=== PATIENT | male | born 2000 | race Caucasian/White ===

== ENCOUNTER 2021-05-23 22:00 | Emergency (ER) | payer OTHER, MEDICAID, SELFPAY ==
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
[2021-05-23 22:04] VITALS: BP 138/81; PULSE 87; RESP 16; TEMP 37.1; O2SAT 100
[2021-05-23 22:16] VITALS: BP 120/75; PULSE 75; RESP 18; TEMP 37.4; O2SAT 100
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
[2021-05-24 00:30] VITALS: BP 134/82; PULSE 89; RESP 18; O2SAT 100
== END 2021-05-24 00:30 | disposition home or self-care (01) ==
PROVIDERS: Emergency Provider Emergency Medicine; PCP Family Medicine
DX: S62.323A Displaced fracture of shaft of third metacarpal bone, left hand, initial encounter for closed fracture (principal); V49.50XA Passenger injured in collision with unspecified motor vehicles in traffic accident, initial encounter
CPT/HCPCS: 29125; 73130; 99284

== ENCOUNTER 2022-12-28 07:32 | Emergency (ER) | payer OTHER, SELFPAY ==
--- NOTE | ~2022-12-28 | CT_ITS ---
EXAMINATION: CT abdomen pelvis w con DATE: 12/28/2022 09:26 INDICATION: Right abdominal pain. Nausea. TECHNIQUE: Computed tomography (CT) of the abdomen and pelvis was performed with 100 mL Omnipaque 350 intravenous contrast. Automated exposure control and iterative reconstruction technique were employe d. The dose-length product was 245.06 mGy-cm. COMPARISON: None. FINDINGS: The visualized portions of the lung bases are clear without pneumonia or pleural effusion. The heart size is normal. No pericardial effusion. The liver, gallbladder, spleen, pancreas, adrenal glands, and kidneys are normal. There are no dilated loops of bowel. The appendix is not visualized. There are no pathologically enlarged lymph nodes. There is trace pelvic ascites. IMPRESSION: 1. Trace pelvic ascites. Reviewed, dictated and finalized at location A. IMPRESSION: 1. Trace pelvic ascites.
[2022-12-28 07:43] VITALS: BP 123/85; PULSE 71; RESP 18; TEMP 37.1; O2SAT 98
[2022-12-28] MEDS: SODIUM CHLORIDE 0.9% IV 1,000 ML 999 ML IV CONT (08:31)
[2022-12-28] MEDS: ONDANSETRON INJ 4 MG/2 ML VIAL IV PUSH (08:31)
[2022-12-28] MEDS: KETOROLAC 30 MG/ML VIAL (*BKC) IV PUSH (08:31)
[2022-12-28 08:33] LABS: Appearance Urine Clear (Clear); Bilirubin Urine Negative (Negative); Blood Urine Negative (Negative); Color Urine Yellow (Yellow); Glucose Urine UA Negative (Negative); Ketones Urine Negative (Negative); Leukocyte Esterase Ur Negative LEU/UL (Negative); Nitrate Urine Negative (Negative); Protein Urine Negative (Negative); Specific Grav Ur 1.023 (1.001-1.035); Urobilinogen Urine 0.2 mg/dL (<2.0)
[2022-12-28 08:37] LABS: Add Urine Microscopic? NO; Basophils Absolute Auto 0.1 K/mm3 (0.0-0.1); Basophils Percent Auto 0.5 % (0.2-1.2); Eosinophils Absolute Auto 0.1 K/mm3 (0-0.3); Hematocrit 42.6 % (42.0-52.0); Hemoglobin 15.2 g/dL (14.0-18.0); Immature Granulocyte Absolute 0.03 K/mm3 (0.00-0.031); Immature Granulocyte Percent A 0.2 % (0-0.5); Lymphocytes Absolute Auto 3.48 K/mm3 (0.9-3.2); Lymphocytes Percent Auto 28.7 % (18.3-44.2); Mean Corpuscular HGB Conc 35.7 g/dl (32-36); Mean Corpuscular Hemoglobin 30.5 pg (26-34); Mean Corpuscular Volume 85.4 fl (80-100); Mean Platelet Volume 9.5 fl (7.4-10.4); Monocytes Percent Auto 8.2 % (2.6-8.5); Neutrophils Absolute Auto 7.4 K/mm3 (1.3-6.7); Neutrophils Percent Auto 61.4 % (45.5-73.1); Platelet Count Result 219 k/mm3 (150-375); Red Blood Count 4.99 M/mm3 (4.6-6.20); Red Cell Distribution Width 12.5 % (11.5-14.5); White Blood Count 12.1 K/mm3 (4.5-10.0)
[2022-12-28 08:43] LABS: Alanine Aminotransferase 59 U/L (6-50); Albumin Level 4.9 g/dL (3.5-5.1); Alkaline Phosphatase 94 U/L (38-126); Anion Gap 5 mmol/L (8-16); Aspartate Amino Transferase 168 U/L (17-59); Bilirubin,Total 0.8 mg/dL (0.2-1.3); Blood Urea Nitrogen 15 mg/dL (9-20); Calcium 9.3 mg/dL (8.4-10.2); Carbon Dioxide 34 mmol/L (22-30); Chloride 101 mmol/L (98-107); Estimated CRCL calculation 99 ml/min; Estimated Glomerular Filt Rate > 60; Glucose 94 mg/dL (65-110); Lipase 45 U/L (23-300); Sodium 140 mmol/L (137-145)
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
[2022-12-28 10:28] VITALS: BP 120/75; PULSE 74; RESP 16; O2SAT 99
== END 2022-12-28 10:29 | disposition home or self-care (01) ==
PROVIDERS: Emergency Provider Emergency Medicine; PCP Family Medicine
DX: R10.31 Right lower quadrant pain (principal)
CPT/HCPCS: 36415; 74177; 80053; 81003; 83690; 85025; 96361; 96374; 96375; 99284; J1885; J2405; J7030; Q9967

== ENCOUNTER 2023-01-20 23:16 | Emergency (ER) | payer OTHER, SELFPAY ==
[2023-01-20 23:20] VITALS: BP 113/70; PULSE 75; RESP 20; TEMP 36.7; O2SAT 98
== END 2023-01-21 01:00 | disposition left against medical advice (07) ==
PROVIDERS: PCP Family Medicine
DX: R22.0 Localized swelling, mass and lump, head (principal)
CPT/HCPCS: 99199

== ENCOUNTER 2023-11-01 18:10 | Emergency (ER) | payer OTHER, SELFPAY ==
[2023-11-01 18:28] VITALS: BP 115/76; PULSE 104; RESP 16; TEMP 38.8; O2SAT 100
--- NOTE | 2023-11-01 19:25 | ED.GENADULT ---
HPI - General Adult General Chief complaint: Upper Respiratory Infection Stated complaint: Sinus/Sore Throat Source: patient Mode of arrival: ambulatory Limitations: no limitations History of Present Illness HPI narrative: Patient presents for evaluation of sick symptoms for last 2 days. Symptoms include cough, sore throat, generalized body aches and fever. No chills, nausea, vomiting, diarrhea. 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 He does not know specifics as to what that individual was experiencing. He does vape. He has tried OTC cough and cold medications without considerable improvement in his symptoms thereafter. Related Data Home Medications Medication Instructions Recorded Confirmed escitalopram oxalate 10 mg tablet 10 mg PO DAILY 11/01/23 11/01/23 hydroxyzine HCl 25 mg tablet 25 mg PO DIRECTED 11/01/23 11/01/23 Allergies Allergy/AdvReac Type Severity Reaction Status Date / Time No Known Allergies Allergy Mild Verified 11/01/23 18:25 Review of Systems Review of Systems: CONSTITUTIONAL: Reports fever. Denies chills. EYES: Denies visual changes, redness, or discharge. ENT: Reports sore throat. Denies rhinorrhea, congestion, or otalgia. CARDIOVASCULAR: Denies chest pain, palpitations, or edema. RESPIRATORY: Reports cough. Denies shortness of. GASTROINTESTINAL: Denies abdominal pain, nausea, vomiting, or diarrhea. GENITOURINARY: Denies dysuria or hematuria. SKIN: Denies rash or itching. MUSCULOSKELETAL: Reports generalized body aches. NEUROLOGIC: Denies headache, numbness, dizziness, or weakness. PSYCHIATRIC: Denies anxiety or depression. [facility] Past Medical History Medical History (Updated 11/01/23 @ 19:29 by AGAPITO Ernandez, ) Patient denies significant medical history Surgical History Surgical History (Updated 11/01/23 @ 19:29 by AGAPITO Ernandez, JACKIE) No pertinent past surgical history Family History Family History (Updated 11/01/23 @ 19:32 by AGAPITO Ernandez, JACKIE) Mother No problems noted. Social History Social History Smoking status: Current every day smoker Tobacco type: e-cigarettes/vaping Alcohol intake: never Substance use: current Substance use type: marijuana Living arrangements: with family Occupation/Education: student Gender identity (if verbalized by the patient): Male Spiritual care concerns: No Exam Narrative: GENERAL: Well-appearing, well-nourished, and in no acute distress. HEAD: Normocephalic, atraumatic. EYES: PERRLA and EOMI. ENT: Nares clear, no rhinorrhea or epistaxis. Mucous membranes moist. Oropharynx without tonsillar hypertrophy exudate or other lesions. Bilateral TMs pearly maldonado nonbulging NECK: Supple. No adenopathy or masses. No carotid bruits or JVD CHEST: Clear to auscultation. No respiratory distress. No wheezes rales or rhonchi HEART: Regular rate and rhythm. No murmur heard. Normal peripheral pulses. ABDOMEN: Soft, nontender, nondistended, normal active bowel sounds. EXTREMITIES: Normal range of motion. No edema. SKIN: Warm, dry, no rash. NEURO: No focal deficits. Alert and oriented x3. PSYCH: Normal mood and affect. Course Course Emergency Course: This is a 22-year-old male who presented for evaluation of sick symptoms for last 2 days. Strep, influenza a, and COVID were all negative. Influenza B was positive. Will treat with Tamiflu. Increase hydration. OTC agents for symptom management. Follow up with primary provider. Go to the ER for worsening symptoms. Pt in agreement with plan of care. Level of Care: Express Care Visit Vital Signs Vital signs: Vital Signs Temperature 38.8 C H 11/01/23 18:28 Pulse Rate 104 H 11/01/23 18:28 Respiratory Rate 16 11/01/23 18:28 Blood Pressure 115/76 11/01/23 18:28 Pulse Oximetry 100 11/01/23 18:28 Oxygen Delivery Room Air 11/01/23 18:
== END 2023-11-01 19:30 | disposition home or self-care (01) ==
LOC: EXPCOLL 18:13
PROVIDERS: Emergency Provider Nurse Practitioner; PCP Family Medicine
DX: J10.1 Influenza due to other identified influenza virus with other respiratory manifestations (principal); Z20.822 Contact with and (suspected) exposure to COVID-19; F17.290 Nicotine dependence, other tobacco product, uncomplicated; F12.90 Cannabis use, unspecified, uncomplicated
CPT/HCPCS: 87081; 87426; 87804; 87880; 99213; G0463

== ENCOUNTER 2023-11-05 10:32 | Emergency (ER) | payer OTHER, SELFPAY ==
--- NOTE | 2023-11-05 10:33 | ED.URI ---
HPI - URI/Sore Throat General Chief Complaint: Upper Respiratory Infection Stated Complaint: Sinus Time Seen by Provider: 11/05/23 10:33 Source: patient Mode of arrival: ambulatory Limitations: no limitations History of Present Illness HPI Narrative: Patient is a 22-year-old male that presents with continued symptoms of influenza B including cough, congestion, sore throat, body aches and fatigue. Patient was diagnosed 2. Patient states work is requiring another note. Denies any fever, chills, nausea, vomiting, diarrhea. Related Data Home Medications Medication Instructions Recorded Confirmed escitalopram oxalate 10 mg tablet 10 mg PO DAILY 11/01/23 11/05/23 hydroxyzine HCl 25 mg tablet 25 mg PO DIRECTED 11/01/23 11/05/23 Allergies Allergy/AdvReac Type Severity Reaction Status Date / Time No Known Allergies Allergy Mild Verified 11/05/23 10:34 Review of Systems Review of Systems: All systems reviewed & are unremarkable except as noted in HPI and below Constitutional: Constitutional: Reports body ache(s), Denies chills, Reports fatigue, Denies fever(s), Denies headache(s), Denies malaise and Denies weakness Eyes: Eyes: Denies blurry vision, Denies itchy eyes and Denies loss of vision ENT: Denies otalgia, Denies headache(s), Reports nasal congestion, Denies sinus pain and Reports sore throat Cardiovascular: Cardiovascular: Denies chest pain, Denies irregular heart rhythm and Denies dyspnea Respiratory: Respiratory: Reports cough and Denies dyspnea Gastrointestinal: Gastrointestinal: Denies abdominal pain, Denies diarrhea, Denies nausea and Denies vomiting Musculoskeletal: Musculoskeletal: Denies back pain, Denies myalgias and Denies arthralgias Integumentary/Breasts: Skin/Breast: Denies pruritus and Denies rash Neurologic: Denies headache(s), Denies loss of vision and Denies weakness Psychiatric: Psychiatric: Reports no additional psychiatric complaints Endocrine: Endocrine: Denies fatigue Allergic/Immunologic: Allergic/Immunologic: Denies itchy eyes PMFSH Past Medical History Medical History Patient denies significant medical history Surgical History Surgical History No pertinent past surgical history Family History Family History Mother No problems noted. Social History Social History Smoking status: Current every day smoker Tobacco type: e-cigarettes/vaping Alcohol intake: never Substance use: current Substance use type: marijuana Living arrangements: with family Occupation/Education: student Gender identity (if verbalized by the patient): Male Spiritual care concerns: No Comments At time of signature, agree with nursing past medical, surgical, social and family history. There is no relevant family history pertinent to the presenting complaint. Exam Const: General: cooperative, healthy appearing, comfortable, no acute distress and well nourished Nutritional Appearance: well nourished Orientation/consciousness: patient oriented x3 Limitations: no limitations HENMT: Head: normal to inspection, normocephalic and atraumatic Ears: hearing grossly normal bilaterally, external ears normal, TM's normal bilaterally, EAC's normal and no periauricular adenopathy Face/Nose/Sinus: Normal external nose present, Abnormal mucous membranes and turbinates present erythematous bilateral and diffuse, normal facial exam, sinuses nontender and face symmetric Face and sinus: normal facial exam, sinuses nontender and face symmetric Mouth: Yes Normal oral and palatal mucosa present, Yes lip normal, Yes tongue normal, Yes Normal salivary glands and ducts present, Yes oropharynx normal and Yes moist mucous membranes Teeth and gingiva: dentition normal Throat: posterio
[2023-11-05 10:39] VITALS: BP 117/65; PULSE 74; RESP 16; TEMP 37; O2SAT 100
== END 2023-11-05 10:55 | disposition home or self-care (01) ==
PROVIDERS: Emergency Provider Nurse Practitioner Family; PCP Family Medicine
DX: J10.1 Influenza due to other identified influenza virus with other respiratory manifestations (principal); F17.290 Nicotine dependence, other tobacco product, uncomplicated; Z79.899 Other long term (current) drug therapy
CPT/HCPCS: 99211; G0463

== ENCOUNTER 2025-04-04 20:05 | Emergency (ER) | payer SELFPAY ==
--- NOTE | ~2025-04-04 | XR_ITS ---
XR chest 2V Ordering provider: Brittany Shannon MD History: 24 years Male with . chest pain on left side, swelling . Comparison: None. FINDINGS: MEDIASTINUM: The cardiac silhouette is not enlarged. LUNGS: No infiltrates, effusions or pneumothorax. OTHER: No free air under the diaphragm. IMPRESSION: No acute cardiopulmonary pathology. Reviewed, dictated and finalized at location A.
--- OUTSIDE RECORDS SUMMARY | 2025-04-04 20:07 | XMS_ITS | Clinical Summary ---
Author Organization [facility] Address [address] [place] [address] Care Team Providers Care Soda Fountain Manager Name Role Phone No, Physician Primary Care Provider [phone] Allergies No known active allergies Medications No known medications Encounters Date Type Department Care Team Description 01/17/2025 11:11 AM CDT - 01/17/2025 2:02 PM CDT Emergency [facility] Emergency Department 1 [place] [address] Electric shock, initial encounter (Primary Dx) Discharge Disposition: Discharge to home or self care from Last 3 Months Social History Tobacco Use Types Packs/Day Years Used Date Smoking Tobacco: Never Assessed Personal Safety Answer Date Recorded Have you ever been in or are you currently in a harmful physical or emotional relationship or is someone making you feel afraid or unsafe? Denies 01/17/2025 Sex and Gender Information Value Date Recorded Sex Assigned at Not on file Legal Sex Male 11:05 AM CDT Gender Identity Not on file Sexual Orientation Not on file Obstetrics History Last Filed Vital Signs Vital Sign Reading Time Taken Comments Blood Pressure 120/74 01/17/2025 2:02 PM CDT Pulse 80 01/17/2025 2:02 PM CDT Temperature 37.7 C (99.8 F) 01/17/2025 11:08 AM CDT Respiratory Rate 18 01/17/2025 2:02 PM CDT Oxygen Saturation 98% 01/17/2025 2:02 PM CDT Inhaled Oxygen Concentration - - Weight 70.3 kg (155 lb) 01/17/2025 11:08 AM CDT Height 182.9 cm (6') 01/17/2025 11:08 AM CDT Body Mass Index 21.02 01/17/2025 11:08 AM CDT Plan of Treatment Health Maintenance Due Date Last Done Comments Depression Screening 2001 Hepatitis C Screening 2001 Varicella Vaccines (1 of 2 - 13+ 2-dose series) 2014 Meningococcal B Vaccine (1 of 2 - Standard) 2017 Hepatitis B Screening 12/27/2019 Regular Well Visit/Exam 18-64 12/27/2019 DTaP/Tdap/Td Vaccine (2 - Td or Tdap) 06/29/2023 06/29/2013 Influenza Vaccine (Season Ended) 2025 08/13/2016, 08/18/2013 HPV Vaccines Completed 05/07/2016, 09/29, 05/10/2015, Additional history exists Pneumococcal vaccine <65 Aged Out No longer eligible based on patient's age to complete this topic Procedures Procedure Name Priority Date/Time Associated Diagnosis Comments URINALYSIS AND REFLEX TO MICROSCOPIC AND CULTURE STAT 01/17/2025 12:59 PM CDT EGFR STAT 01/17/2025 11:41 AM CDT DIFFERENTIAL AUTO STAT 01/17/2025 11: 41 AM CDT SEPSIS LACTATE WITH REFLEX STAT 01/17/2025 11:41 AM CDT CREATINE KINASE (CK), TOTAL STAT 01/17/2025 11:41 AM CDT COMPREHENSIVE METABOLIC PANEL STAT 01/17/2025 11:41 AM CDT CBC WITH AUTO DIFFERENTIAL STAT 01/17/2025 11:41 AM CDT ECG 12-LEAD Routine 01/17/2025 11:32 AM CDT from Last 3 Months Results * Urinalysis reflex to microscopic and culture Urine (01/17/2025 12:59 PM CDT) Color, ur Yellow Yellow Clarity, ur Clear Clear [facility] ([place]) Specific gravity, ur 1.024 1.003 - 1.030 [facility] ([place]) pH, urine 7.5 [facility] ([place]) Comment: Interpretive Data U rine pH is affected by diet, medications, systemic acid-base disturbances, and renal tubular function. pH may affect urinary stone formation. For example, urine pH below 6.0 may help reduce the tendency for calcium phosphate stones and pH greater than 6.0 may reduce the tendency for uric acid stone formation. Source: [facility] Current Interpretive Data was last revised on 2017 Protein, ur ql Negative Negative [facility] ([place]) Glucose, ur ql Negative Negative [facility] ([place]) Ketones, ur Negative Negative [facility] ([place]) Bilirubin, ur Negative Negative [facility] ([place]) Blood, ur Negative Negative [facility] ([place]) Urobilinogen, ur <2.0 <2.0 mg/dL [facility] ([place]) Nitrite, ur Negative Negative [facility] ([place]) Leukocyte esterase, ur Negative Negative [facility] ([place]) UA reflex comment Reflex conditions for microscopic UA and culture not met. [facility] ([place]) Urine 01/17/2025 12:5 9 PM CDT 01/17/2025 1:05 PM CDT us Luis Hernandez NP LAB MICROBIOLOGY - GENERAL ORDERABLES Final Result Performing Organization Address City/[facility]/ZIP Co de Phone Number AYAKA STEVENSON ([place]) 1 [facility] [place] [address] * Sepsis Lactate w/ Reflex (01/17/2025 11:41 AM CDT) Sepsis Lactate 1.3 0.7 - 2.0 mmol/L Blood 01/17/2025 11:4 1 AM CDT 01/17/2025 11:51 AM CDT us Luis Hernandez NP LAB BLOOD ORDERABLES Final Result Performing Organization Address [facility]/ZIP Co de Phone Number AYAKA STEVENSON ([place]) 1 [facility] [place] [address] * eGFR (01/17/2025 11:41 AM CDT) eGFR >90 >=60 mL/min/1. 73 m2 Comment: Interpretive Data Reference Interval Normal >/= 90 mL/min/1.73m2 Mildly decreased* 60 - 89 mL/min/1.73m2 Mildly to moderately decreased 45 - 59 mL/min/1.73m2 Moderately to severely decreased 30 - 44 mL/min/1.73m2 Severely decreased 15 - 29 mL/min/1.73m2 Kidney Failure < 15 mL/min/1.73m2 *Relative to young adult level Estimated glomerular filtration rate is determined by the 2020 CKD-EPI equation recommended by the National Kidney Foundation (A Unifying Approach to GFR Estimation: Recommendations of the NKF-ASK Task Force on Reassessing the Inclusion of Race in Diagnosing Kidney Disease, JASN 2020). The CKD-EPI equation should not be used for patients with unstable renal function and has not been validated in children and those over 70. Current interpretive data was last reviewed 2021. Blood 01/17/2025 11:4 1 AM CDT 01/17/2025 11:51 AM CDT us uLis Hernandez NP LAB BLOOD ORDERABLES Final Result AYAKA STEVENSON ([place]) 1 [facility] Department [place] [address] * Differential, auto (01/17/2025 11:41 AM CDT) Neutrophil abs 3.82 1.50 - 6.50 K/cumm Imm gran abs 0.01 0.00 - 0.10 K/cumm [facility] ([place]) Lymphocyte abs 1.70 0.80 - 3.30 K/cumm [facility] ([place]) Monocyte abs 0.52 0.20 - 0.80 K/cumm [facility] ([place]) Eosinophil abs 0.05 0.00 - 0.50 K/cumm [facility] ([place]) Basophil abs 0.07 0.00 - 0.10 K/cumm [facility] ([place]) Neutrophil pct 61.9 % [facility] ([place]) Comment: Interpretive Data Percent cell count reference ranges are not reported, since discordance with absolute values may lead to misinterpretation of CBC data. Current Interpretive Data was last revised on 2018. Imm gran pct 0.2 % AYAKA STEVENSON ([place]) Comment: Interpretive Data Percent cell count reference ranges are not reported, since discordance with absolute values may lead to misinterpretation of CBC data. Current Interpretive Data was last revised on 2018. Lymphocyte pct 27.6 % BRIANNE R GRAHAM (A[place]ON) Comment: Interpretive Data Percent cell count reference ranges are not reported, since discordance with absolute values may lead to misinterpretation of CBC data. Current Interpretive Data was last revised on 2018. Monocyte pct 8.4 % AYAKA STEVENSON ([place]) Comment: Interpretive Data Percent cell count reference ranges are not reported, since discordance with absolute values may lead to misinterpretation of CBC data. Current Interpretive Data was last revised on 2018. Eosinophil pct 0.8 % [facility] R [facility] ([place]ON) Comment: Interpretive Data Percent cell count reference ranges are not reported, since discordance with absolute values may lead to misinterpretation of CBC data. Current Interpretive Data was last revised on 2018. Basophil pct 1.1 % AYAKA STEVENSON ([place]) Comment: Interpretive Data Percent cell count reference ranges are not reported, since discordance with absolute values may lead to misinterpretation of CBC data. Current Interpretive Data was last revised on 2018. Blood 01/17/2025 11:4 1 AM CDT 01/17/2025 11:51 AM CDT us Luis Hernandez ACETYLENE OPERATOR LAB BLOOD ORDERABLES Final Result AYAKA STEVENSON ([place]) 1 [facility] Department of Laboratories [place], [place] [id number] * CBC with auto differential (01/17/2025 11:41 AM CDT) WBC 6.17 3.80 - 9.90 K/cumm Hgb 14.0 13.0 - 17.5 g/dL [facility] ([place]) Hct 39.6 38.9 - 50.3 % [facility] ([place]) Plt 196 150 - 400 K/cumm [facility] ([place]) MPV 9.5 9.1 - 12.3 fL [facility] ([place]) RBC 4.58 4.30 - 5.80 M/cumm [facility] ([place]) MCV 86.5 81.3 - 96.4 fL [facility] ([place]) MCH 30.6 27.1 - 33.3 pg [facility] ([place]) MCHC 35.4 32.3 - 35.7 g/dL [facility] ([place]) RDW CV 12.5 11.1 - 14.9 % [facility] ([place]) RDW SD 39.3 35.7 - 48.1 fL [facility] NRBC abs 0.00 0.00 - 0.01 K/cumm [facility] ([place]) Blood 01/17/2025 11:4 1 AM CDT 01/17/2025 11:51 AM CDT us Luis Hernandez ACETYLENE OPERATOR LAB BLOOD ORDERABLES Final Result AYAKA STEVENSON ([place]) 1 [facility] [place] [address] * Creatine kinase (CK), total (01/17/2025 11:41 AM CDT) CK 182 40 - 300 Units/L Blood 01/17/2025 11:4 1 AM CDT 01/17/2025 11:51 AM CDT Luis Hernandez NP LAB BLOOD ORDERABLES Final Result AYAKA STEVENSON ([place]) 1 [facility] [address] * Comprehensive metabolic panel (01/17/2025 11:41 AM CDT) Sodium 139 135 - 145 mmol/L Potassium, pl 4.0 3.3 - 4.9 mmol/L [facility] ([place]) Chloride 102 97 - 110 mmol/L [facility] ([place]) CO2 25 22 - 32 mmol/L [facility] ([place]) Anion gap 12 2 - 15 mmol/L [facility] ([place]) BUN 15 6 - 25 mg/dL [facility] ([place]) Creatinine 0.96 0.80 - 1.30 mg/dL [facility] ([place]) Glucose 90 70 - 199 mg/dL [facility] ([place]) Comment: Interpretive Data Fasting glucose >/= 126 mg/dl is diagnostic for diabetes. Fasting is defined as no caloric intake for at least 8 hours. Fasting glucose between 100 mg/dl to 125 mg/dl is diagnostic of prediabetes. In a patient with classic symptoms of hyperglycemia or hyperglycemic crisis, a random glucose >/= 200 mg/dl is diagnostic for diabetes. In the absence of unequivocal hyperglycemia, results should be confirmed by repeat testing. The classification and Diagnosis of Diabetes Diabetes Care 2021; 46: S19-S40. Current interpretive data was last revised 2022. Calcium 9.6 8.5 - 10.3 mg/dL [facility] ([place]) Bilirubin, total 0.3 0.1 - 1.2 mg/dL [facility] ([place]) Protein, pl 7.4 6.5 - 8.5 g/dL [facility] ([place]) Albumin 4.8 3.5 - 5.0 g/dL [facility] ([place]) Alk phos 59 40 - 130 Units/L [facility] ([place]) ALT 11 7 - 55 Units/L [facility] ([place]) AST 21 10 - 50 Units/L [facility] ([place]) Blood 01/17/2025 11:4 1 AM CDT 01/17/2025 11:51 AM CDT us Luis Hernandez NP LAB BLOOD ORDERABLES Final Result [facility] ([place]ON) 1 [facility] Department [place] [address] * ECG 12 lead (01/17/2025 11:32 AM CDT) 01/17/2025 11:3 2 AM CDT Narrative [facility] - 01/17/2025 12:24 PM CDT [place] Rate: 91 bpm RR Interval: 655 msec [place] Interval: 148 msec QRS Duration: 104 msec QT Interval: 327 msec QTC Interval: 376 msec P-R-T [place]: 76 - 81 - 53 degrees IMPRESSION: SINUS RHYTHM POSSIBLE RIGHT VENTRICULAR CONDUCTION DELAY [RSR (QR) IN V1/V2] BORDERLINE ECG Electronically Signed By: Agustin Mart MD us Luis Hernandez ACETYLENE OPERATOR ECG ORDERABLES Final Resul t [facility] from Last 3 Months Care Teams Soda Fountain Manager Relationship Specialty Start Date End Date No, Physician PCP - General 01/17/25
--- OUTSIDE RECORDS SUMMARY | 2025-04-04 20:07 | XMS_ITS | Referral Summary ---
Author Organization [facility] Address [address] [place] [address] Care Team Providers Care Sheet Metal Worker Helper Name Role Phone No, Physician Primary Care Provider [phone] Encounters Date Type Department Care Team Description 01/17/2025 11:11 AM CDT - 01/17/2025 2:02 PM CDT Emergency [facility] Emergency Department [address] [place] [address] Electric shock, initial encounter (Primary Dx) Discharge Disposition: Discharge to home or self care from Last 3 Months Allergies No known active allergies Medications No known medications Social History Tobacco Use Types Packs/Day Years [...] on file Sexual Orientation Not on file Last Filed Vital Signs Vital Sign Reading [...] 01/17/2025 11:08 AM CDT Plan of Treatment Not on file Procedures Procedure Name Priority Date/Time Associated Diagnosis [...] tendency for uric acid stone formation. Source: [facility] Current Interpretive Data was last revised on 2017 Protein, ur ql Negative Negative [facility] ([place]) Glucose, ur ql Negative Negative [facility] ([place]) Ketones, ur Negative Negative [facility] ([place]) Bilirubin, ur Negative Negative [facility] ([place]) Blood, ur Negative Negative [facility] ([place]) Urobilinogen, ur <2.0 <2.0 mg/dL [facility] ([place]ON) Nitrite, ur Negative Negative CERNER A (AARON) Leukocyte esterase, ur Negative Negative [facility] ([facility] UA reflex comment Reflex conditions for microscopic UA and culture not met. [facility] ([place]ON) Urine 01/17/2025 12:5 9 PM CDT 01/17/2025 1:05 PM CDT Luis Hernandez NP LAB MICROBIOLOGY - GENERAL ORDERABLES Final Result [facility]A [facility] ([place]) 1 [facility] [place] [address] * Sepsis Lactate w/ Reflex (01/17/2025 11:41 AM CDT) Sepsis Lactate 1.3 0.7 - 2.0 mmol/L Blood 01/17/2025 11:4 1 AM CDT 01/17/2025 11:51 AM CDT Luis Hernandez NP LAB BLOOD ORDERABLES Final Result AYAKA STEVENSON ([place]) 1 [facility] [place] [address] * eGFR (01/17/2025 11:41 AM CDT) eGFR [...] 01/17/2025 11:51 AM CDT us Luis Hernandez CREDIT UNION TELLER LAB BLOOD ORDERABLES Final Result [facility] ([place]) 1 [facility] Department [place] [address] * Differential, auto (01/17/2025 11:41 AM CDT) [...] on 2018. Imm gran pct 0.2 % [facility] ([place]) Comment: Interpretive Data Percent cell count reference ranges are not reported, since discordance with absolute values may lead to misinterpretation of CBC data. Current Interpretive Data was last revised on 2018. Lymphocyte pct 27.6 % [facility] ([place]) Comment: Interpretive Data Percent cell count reference ranges are not reported, since discordance with absolute values may lead to misinterpretation of CBC data. Current Interpretive Data was last revised on 2018. Monocyte pct 8.4 % [facility] ([place]) Comment: Interpretive Data Percent cell count reference ranges are not reported, since discordance with absolute values may lead to misinterpretation of CBC data. Current Interpretive Data was last revised on 2018. Eosinophil pct 0.8 % [facility] ([place]) Comment: Interpretive Data Percent cell count reference ranges are not reported, since discordance with absolute values may lead to misinterpretation of CBC data. Current Interpretive Data was last revised on 2018. Basophil pct 1.1 % [facility] ([place]) Comment: Interpretive Data Percent cell count reference ranges are not reported, since discordance with absolute values may lead to misinterpretation of CBC data. Current Interpretive Data was last revised on 2018. Blood 01/17/2025 11:4 1 AM CDT 01/17/2025 11:51 AM CDT Luis Hernandez CREDIT UNION TELLER LAB BLOOD ORDERABLES Final Result [facility] ([place]) 1 [facility] Department [place] [address] * CBC with auto differential (01/17/2025 11:41 AM CDT) WBC 6.17 3.80 - 9.90 K/cumm Hgb 14.0 13.0 - 17.5 g/dL [facility] ([place]) Hct 39.6 38.9 - 50.3 % [facility] ([place]) Plt 196 150 - 400 K/cumm [facility] ([place]) MPV 9.5 9.1 - 12.3 fL [facility] ([place]) RBC 4.58 4.30 - 5.80 M/cumm [facility] ([place]) MCV 86.5 81.3 - 96.4 fL [facility] ([place]) MCH 30.6 27.1 - 33.3 pg [facility] ([place]) MCHC 35.4 32.3 - 35.7 g/dL [facility] ([place]) RDW CV 12.5 11.1 - 14.9 % [facility] ([place]) RDW SD 39.3 35.7 - 48.1 fL [facility] ([place]) NRBC abs 0.00 0.00 - 0.01 K/cumm [facility] ([place]) Blood 01/17/2025 11:4 1 AM CDT 01/17/2025 11:51 AM CDT Luis Hernandez NP LAB BLOOD ORDERABLES Final Result Performing Organization Address City/[facility]/ZIP Co de Phone Number AYAKA STEVENSON ([place]) 1 [facility] [place] [address] * Creatine kinase (CK), total (01/17/2025 11:41 AM CDT) CK 182 40 - 300 Units/L Blood 01/17/2025 11:4 1 AM CDT 01/17/2025 11:51 AM CDT Luis Hernandez CREDIT UNION TELLER LAB BLOOD ORDERABLES Final Result Performing Organization Address [facility] de Phone Number [facility] ([place]) 1 [facility] [place] [address] * Comprehensive metabolic panel (01/17/2025 11:41 AM CDT) Sodium 139 135 - 145 mmol/L Potassium, pl 4.0 3.3 - 4.9 mmol/L [facility] ([place]) Chloride 102 97 - 110 mmol/L [facility] ([place]) CO2 25 22 - 32 mmol/L [facility] ([place]) Anion gap 12 2 - 15 mmol/L [facility] ([place]) BUN 15 6 - 25 mg/dL [facility] ([place]) Creatinine 0.96 0.80 - 1.30 mg/dL [facility] ([place]) Glucose 90 70 - 199 mg/dL [facility] ([place]) Comment: Interpretive Data Fasting glucose [...] BLOOD ORDERABLES Final Result Performing Organization Address City/[facility] Co de Phone Number [facility]A [facility] ([place]) 1 [facility] [place] [address] * ECG 12 lead (01/17/2025 11:32 AM CDT) 01/17/2025 11:3 2 AM CDT Narrative [facility] [employer] - 01/17/2025 12:24 PM CDT Vent Rate: 91 bpm RR Interval: 655 msec [place] Interval: 148 msec QRS Duration: 104 msec QT Interval: 327 msec QTC Interval: 376 msec P-R-T [place]: 76 - 81 - 53 degrees IMPRESSION: SINUS RHYTHM POSSIBLE RIGHT VENTRICULAR CONDUCTION DELAY [RSR (QR) IN V1/V2] BORDERLINE ECG Electronically Signed By: Agustin Mart MD Luis Hernandez CREDIT UNION TELLER ECG ORDERABLES Final Resul t Performing Organization Address City/[facility]/ZIP Co de Phone Number [facility] [employer] [facility] from Last 3 Months Care Teams Sheet Metal Worker Helper Relationship Specialty Start Date End Date No, Physician PCP - General 01/17/25
[2025-04-04 20:09] VITALS: BP 121/69; PULSE 81; RESP 17; TEMP 36.5; O2SAT 97
--- NOTE | 2025-04-04 20:15 | ECG_ITS ---
Test Date: 2025-04-04 20:19:53 Measurements Intervals [place] Rate: 79 P: 78 NE: 148 QRS: 83 QRSD: 100 T: 56 QT: 352 QTc: 405 Interpretive Statements SINUS RHYTHM POSSIBLE LEFT ATRIAL ENLARGEMENT [-0.1mV P WAVE IN V1/V2] POSSIBLE RIGHT VENTRICULAR CONDUCTION DELAY [RSR (QR) IN V1/V2] WITHIN NORMAL LIMITS No previous ECG available for comparison Electronically Signed On 04-05-2025 07:47:08 CDT by Leobardo Calderon M.D.
[2025-04-04 20:37] LABS: Hematocrit 44.1 % (42.0-52.0); Hemoglobin 15.4 g/dL (14.0-18.0); Immature Granulocyte Percent A 0.3 % (0-0.5); Lymphocytes Absolute Auto 2.85 K/mm3 (0.9-3.2); Mean Corpuscular HGB Conc 34.9 g/dl (32-36); Mean Corpuscular Hemoglobin 30.2 pg (26-34); Mean Corpuscular Volume 86.5 fl (80-100); Nucleated Red Blood Cells Absolute Auto 0.000 K/mm3 (0.0-0.012); Nucleated Red Blood Cells Perc 0.0 % (0.0-0.2); Platelet Count Result 218 k/mm3 (150-375); Red Blood Count 5.10 M/mm3 (4.6-6.20); White Blood Count 10.4 K/mm3 (4.5-10.0)
[2025-04-04 20:46] LABS: Alanine Aminotransferase 17 U/L (6-50); Albumin Level 5.1 g/dL (3.5-5.1); Alkaline Phosphatase 48 U/L (38-126); Anion Gap 10 mmol/L (4-12); Aspartate Amino Transferase 34 U/L (17-59); Bilirubin,Total 0.5 mg/dL (0.2-1.3); Blood Urea Nitrogen 22 mg/dL (9-20); Calcium 10.1 mg/dL (8.4-10.2); Carbon Dioxide 30 mmol/L (22-30); Chloride 101 mmol/L (98-107); Estimated CRCL calculation 83 ml/min; Estimated Glomerular Filt Rate > 60; Glucose 96 mg/dL (65-110); Lipase 63 U/L (23-300); Sodium 141 mmol/L (137-145); Total Protein 8.2 g/dL (6.3-8.2)
[2025-04-04 20:49] LABS: INR 1.1; Partial Thromboplastin Time 26.3 Seconds (22.3-36.8); Prothrombin Time 13.9 Seconds (11.1-14.7)
[2025-04-04 20:57] LABS: Troponin I < 0.012 ng/mL (0.000-0.034)
--- NOTE | 2025-04-04 21:25 | PC.NURSE ---
PT WAS CALLED TO BE PLACED IN ROOM WITH NO ANSWER. NOT FOUND IN WAITING ROOM OR OUTSIDE OF DEPARTMENT.
[2025-04-04 22:09] LABS: Potassium 3.7 mmol/L (3.4-5.0)
--- OUTSIDE RECORDS SUMMARY | 2025-04-04 22:19 | XMS_ITS | Clinical Summary ---
Author Organization [facility] Address [address] [place] [address] Care Team Providers Care Parachute Supervisor Name Role Phone No, Physician Primary Care Provider [phone] Allergies No known active allergies Medications No known medications Encounters Date Type Department Care Team Description 01/17/2025 11:11 AM CDT - 01/17/2025 2:02 PM CDT Emergency [facility] Emergency Department 1 [place] [address] Electric shock, initial encounter (Primary Dx) Discharge [...] tendency for uric acid stone formation. Source: [facility] Current Interpretive Data was last revised on [...] GENERAL ORDERABLES Final Result Performing Organization Address City/[facility]/ZIP Co de Phone Number AYAKA STEVENSON ([place]) 1 [facility] [place] [address] * Sepsis Lactate w/ Reflex (01/17/2025 11:41 AM CDT) Sepsis Lactate 1.3 0.7 - 2.0 mmol/L Blood 01/17/2025 11:4 1 AM CDT 01/17/2025 11:51 AM CDT us Luis Hernandez NP LAB BLOOD ORDERABLES Final Result Performing Organization Address [facility]/ZIP Co de Phone Number AYAKA STEVENSON ([place]ON) 1 [facility] [place] [address] * eGFR (01/17/2025 11:41 AM CDT) eGFR [...] LAB BLOOD ORDERABLES Final Result AYAKA STEVENSON ([place]) 1 [facility] Department [place] [address] * Differential, auto (01/17/2025 11:41 AM CDT) [...] CDT 01/17/2025 11:51 AM CDT us Luis Hernadnez CAR WORKER LAB BLOOD ORDERABLES Final Result AYAKA STEVENSON ([place]ON) 1 [facility] Department of Laboratories [place], [place] [id number] * CBC with auto differential (01/17/2025 11:41 [...] RDW SD 39.3 35.7 - 48.1 fL [facility] ([place]) NRBC abs 0.00 0.00 - 0.01 K/cumm [facility] ([place]) Blood 01/17/2025 11:4 1 AM CDT 01/17/2025 11:51 AM CDT us Luis Hernandez CAR WORKER LAB BLOOD ORDERABLES Final Result AYAKA STEVENSON ([place]) 1 [facility] [place] [address] * Creatine kinase (CK), total (01/17/2025 11:41 AM CDT) CK 182 40 - 300 Units/L Blood 01/17/2025 11:4 1 AM CDT 01/17/2025 11:51 AM CDT Luis Hernandez NP LAB BLOOD ORDERABLES Final Result AYAKA STEVENSON ([place]) 1 [facility] [place] [address] * Comprehensive metabolic panel (01/17/2025 11:41 AM [...] ORDERABLES Final Result AYAKA [facility] ([place]) 1 [facility] Department [place] [address] * ECG 12 lead (01/17/2025 11:32 AM CDT) 01/17/2025 11:3 2 AM CDT Narrative [facility] - 01/17/2025 12:24 PM CDT Vent Rate: 91 bpm RR Interval: 655 msec [place] Interval: 148 msec QRS Duration: 104 msec QT Interval: 327 msec QTC Interval: 376 msec P-R-T [place]: 76 - 81 - 53 degrees IMPRESSION: SINUS RHYTHM POSSIBLE RIGHT VENTRICULAR CONDUCTION DELAY [RSR (QR) IN V1/V2] BORDERLINE ECG Electronically Signed By: Agustin Matr MD us Luis Hernandez CAR WORKER ECG ORDERABLES Final Resul t [facility] from Last 3 Months Care Teams Parachute Supervisor Relationship Specialty Start Date End Date No, Physician PCP - General 01/17/25
--- OUTSIDE RECORDS SUMMARY | 2025-04-04 22:20 | XMS_ITS | Referral Summary ---
Author Organization [facility] Address [address] [place] [address] Care Team Providers Care Snowmobile Mechanic Name Role Phone No, Physician Primary Care Provider [phone] Encounters Date Type Department Care Team Description 01/17/2025 11:11 AM CDT - 01/17/2025 2:02 PM CDT Emergency [facility] Emergency Department [address] [place] [address] Electric shock, initial encounter (Primary Dx) Discharge [...] tendency for uric acid stone formation. Source: [employer] Current Interpretive Data was last revised on 2017 Protein, ur ql Negative Negative [facility] ([place]) Glucose, ur ql Negative Negative [facility] ([place]) Ketones, ur Negative Negative [facility] ([place]) Bilirubin, ur Negative Negative [facility] ([place]) Blood, ur Negative Negative [facility] ([place]) Urobilinogen, ur <2.0 <2.0 mg/dL [facility] ([place]) Nitrite, ur Negative Negative [facility] ([place]) Leukocyte esterase, ur Negative Negative [facility] ([place] UA reflex comment Reflex conditions for microscopic UA and culture not met. [facility] ([place]) Urine 01/17/2025 12:5 9 PM CDT 01/17/2025 1:05 PM CDT Luis Hernandez NP LAB MICROBIOLOGY - GENERAL ORDERABLES Final Result [facility] ([place]) 1 [facility] [place] [address] * Sepsis Lactate w/ Reflex (01/17/2025 11:41 AM CDT) Sepsis Lactate 1.3 0.7 - 2.0 mmol/L Blood 01/17/2025 11:4 1 AM CDT 01/17/2025 11:51 AM CDT Luis Hernandez NP LAB BLOOD ORDERABLES Final Result AYAKA STEVENSON ([place]) 1 [facility] [place] [address] * eGFR (01/17/2025 11:41 AM CDT) eGFR [...] 01/17/2025 11:51 AM CDT us Luis Hernandez SUEDE BRUSHER LAB BLOOD ORDERABLES Final Result [facility] ([place]) 1 [facility] Department [place] [address] * Differential, auto (01/17/2025 11:41 AM CDT) [...] CDT 01/17/2025 11:51 AM CDT Luis Hernandez SUEDE BRUSHER LAB BLOOD ORDERABLES Final Result [facility] ([place]) 1 [facility] Department [place] [address] * CBC with auto differential (01/17/2025 11:41 [...] NRBC abs 0.00 0.00 - 0.01 K/cumm [facility] ([place]) Blood 01/17/2025 11:4 1 AM CDT 01/17/2025 11:51 AM CDT Luis Hernandez NP LAB BLOOD ORDERABLES Final Result Performing Organization Address City/[facility]/ZIP Co de Phone Number AYAKA STEVENSON ([place]) 1 [facility] [place] [address] * Creatine kinase (CK), total (01/17/2025 11:41 AM CDT) CK 182 40 - 300 Units/L Blood 01/17/2025 11:4 1 AM CDT 01/17/2025 11:51 AM CDT Luis Hernandez SUEDE BRUSHER LAB BLOOD ORDERABLES Final Result Performing Organization Address [facility] de Phone Number [facility] ([place]) 1 [facility] [place] [address] * Comprehensive metabolic panel (01/17/2025 11:41 AM CDT) Sodium 139 135 - 145 mmol/L Potassium, pl 4.0 3.3 - 4.9 mmol/L [facility] ([place]) Chloride 102 97 - 110 mmol/L [facility] ([place]) CO2 25 22 - 32 mmol/L [facility] ([place]) Anion gap 12 2 - 15 mmol/L [facility] ([place]) BUN 15 6 - 25 mg/dL [facility] ([place]) Creatinine 0.96 0.80 - 1.30 mg/dL [facility] ([place]) Glucose 90 70 - 199 mg/dL [facility] ([place]) Comment: Interpretive Data [...] BLOOD ORDERABLES Final Result Performing Organization Address City/[facility] Co de Phone Number AY[facility]A [facility] ([place]) 1 [facility] [place] [address] * ECG 12 lead (01/17/2025 11:32 AM CDT) 01/17/2025 11:3 2 AM CDT Narrative [facility] [place] - 01/17/2025 12:24 PM CDT Vent Rate: 91 bpm RR Interval: 655 msec MA Interval: 148 msec QRS Duration: 104 msec QT Interval: 327 msec QTC Interval: 376 msec P-R-T [place]: 76 - 81 - 53 degrees IMPRESSION: SINUS RHYTHM POSSIBLE RIGHT VENTRICULAR CONDUCTION DELAY [RSR (QR) IN V1/V2] BORDERLINE ECG Electronically Signed By: Agustin Mart MD Luis Hernandez SUEDE BRUSHER ECG ORDERABLES Final Resul t Performing Organization Address City/[facility]/ZIP Co de Phone Number [facility] [place] [facility] from Last 3 Months Care Teams Snowmobile Mechanic Relationship Specialty Start Date End Date No, Physician PCP - General 01/17/25
== END 2025-04-04 21:25 | disposition left against medical advice (07) ==
PROVIDERS: Emergency Provider Emergency Medicine
DX: R07.9 Chest pain, unspecified (principal)
CPT/HCPCS: 36415; 71046; 80053; 83690; 84484; 85025; 85610; 85730; 93005; 99199

== ENCOUNTER 2025-04-05 18:21 | Emergency (ER) | payer SELFPAY ==
--- OUTSIDE RECORDS SUMMARY | 2025-04-05 18:25 | XMS_ITS | Clinical Summary ---
Author Organization [facility] Address [address] [place] [address] Care Team Providers Care Dough Braker Name Role Phone No, Physician Primary Care Provider [phone] Allergies No known active allergies Medications No known medications Encounters Date Type Department Care Team Description 01/17/2025 11:11 AM CDT - 01/17/2025 2:02 PM CDT Emergency [facility] Emergency Department 1 [place] [address] Electric shock, initial encounter (Primary Dx) Discharge [...] tendency for uric acid stone formation. Source: [facility] Current Interpretive Data was last revised on [...] GENERAL ORDERABLES Final Result Performing Organization Address City/[facility]/ZIP Co de Phone Number AYAKA STEVENSON ([place]) 1 [facility] [place] [address] * Sepsis Lactate w/ Reflex (01/17/2025 11:41 AM CDT) Sepsis Lactate 1.3 0.7 - 2.0 mmol/L Blood 01/17/2025 11:4 1 AM CDT 01/17/2025 11:51 AM CDT us Luis Hernandez NP LAB BLOOD ORDERABLES Final Result Performing Organization Address [facility]/ZIP Co de Phone Number AYAKA STEVENSON ([place]) 1 [facility] [place] [address] * eGFR (01/17/2025 11:41 AM CDT) eGFR [...] LAB BLOOD ORDERABLES Final Result AYAKA STEVENSON ([place]) 1 [facility] Department [place] [address] * Differential, auto (01/17/2025 11:41 AM CDT) [...] revised on 2018. Lymphocyte pct 27.6 % [facility]NE R [facility] ([place]) Comment: Interpretive Data Percent [...] 01/17/2025 11:51 AM CDT us Luis Hernandez NEW ACCOUNTS REPRESENTATIVE LAB BLOOD ORDERABLES Final Result AYAKA STEVENSON ([place]) 1 [facility] Department of Laboratories [place], [place] [id number] * CBC with auto differential (01/17/2025 11:41 [...] RDW SD 39.3 35.7 - 48.1 fL [facility] ([place] NRBC abs 0.00 0.00 - 0.01 K/cumm [facility] ([place]) Blood 01/17/2025 11:4 1 AM CDT 01/17/2025 11:51 AM CDT us Luis Hernandez NEW ACCOUNTS REPRESENTATIVE LAB BLOOD ORDERABLES Final Result AYAKA STEVENSON ([place]) 1 [facility] [place] [address] * Creatine kinase (CK), total (01/17/2025 11:41 AM CDT) CK 182 40 - 300 Units/L Blood 01/17/2025 11:4 1 AM CDT 01/17/2025 11:51 AM CDT Luis Hernandez NP LAB BLOOD ORDERABLES Final Result AYAKA STEVENSON ([place]) 1 [facility] [place] [address] * Comprehensive metabolic panel (01/17/2025 11:41 AM CDT) Sodium 139 135 - 145 mmol/L Potassium, pl 4.0 3.3 - 4.9 mmol/L [facility] ([place]) Chloride 102 97 - 110 mmol/L [facility] ([place]) CO2 25 22 - 32 mmol/L CERNER [...] ORDERABLES Final Result [facility]A [facility] ([place]) 1 [facility] Department [place] [address] * ECG 12 lead (01/17/2025 11:32 AM CDT) 01/17/2025 11:3 2 AM CDT Narrative [facility] - 01/17/2025 12:24 PM CDT Vent Rate: 91 bpm RR Interval: 655 msec HI Interval: 148 msec QRS Duration: 104 msec QT Interval: 327 msec QTC Interval: 376 msec P-R-T [place]: 76 - 81 - 53 degrees IMPRESSION: SINUS RHYTHM POSSIBLE RIGHT VENTRICULAR CONDUCTION DELAY [RSR (QR) IN V1/V2] BORDERLINE ECG Electronically Signed By: Agustin Mart MD us Luis Hernandez NEW ACCOUNTS REPRESENTATIVE ECG ORDERABLES Final Resul t [facility] from Last 3 Months Care Teams Dough Braker Relationship Specialty Start Date End Date No, Physician PCP - General 01/17/25
--- OUTSIDE RECORDS SUMMARY | 2025-04-05 18:25 | XMS_ITS | Referral Summary ---
Author Organization [facility] Address [address] [place] [address] Care Team Providers Care Squeak Rattle And Leak Repairer Name Role Phone No, Physician Primary Care Provider [phone] Encounters Date Type Department Care Team Description 01/17/2025 11:11 AM CDT - 01/17/2025 2:02 PM CDT Emergency [facility] Emergency Department 1 [place] [address] Electric shock, initial encounter (Primary Dx) Discharge [...] tendency for uric acid stone formation. Source: [employer] Current Interpretive Data was last revised on 2017 Protein, ur ql Negative Negative [facility] ([place]) Glucose, ur ql Negative Negative [facility] ([place]) Ketones, ur Negative Negative [facility] ([place]) Bilirubin, ur Negative Negative [facility] ([place]) Blood, ur Negative Negative [facility] ([place]) Urobilinogen, ur <2.0 <2.0 mg/dL [facility] ([place]) Nitrite, ur Negative Negative [facility] A ([place]) Leukocyte esterase, ur Negative Negative [facility] ([place]) UA reflex comment Reflex conditions for microscopic UA and culture not met. [facility]A [facility] ([place]) Urine 01/17/2025 12:5 9 PM CDT 01/17/2025 1:05 PM CDT Luis Hernandez NP LAB MICROBIOLOGY - GENERAL ORDERABLES Final Result [facility]A [facility] ([place]) 1 [facility] [place] [address] * Sepsis Lactate w/ Reflex (01/17/2025 11:41 AM CDT) Sepsis Lactate 1.3 0.7 - 2.0 mmol/L Blood 01/17/2025 11:4 1 AM CDT 01/17/2025 11:51 AM CDT Luis Hernandez NP LAB BLOOD ORDERABLES Final Result AYAKA STEVENSON ([place]) 1 [facility] [place] [address] * eGFR (01/17/2025 11:41 AM CDT) eGFR [...] 01/17/2025 11:51 AM CDT us Luis Hernandez ADMINISTRATIVE OPERATIONS COORDINATOR LAB BLOOD ORDERABLES Final Result [facility] ([place]) 1 [facility] Department [place] [address] * Differential, auto (01/17/2025 11:41 AM CDT) [...] CDT 01/17/2025 11:51 AM CDT Luis Hernandez ADMINISTRATIVE OPERATIONS COORDINATOR LAB BLOOD ORDERABLES Final Result [facility]A [facility] ([place]) 1 [facility] [place] [address] * CBC with auto differential (01/17/2025 11:41 [...] NRBC abs 0.00 0.00 - 0.01 K/cumm [facility] ([place]) Blood 01/17/2025 11:4 1 AM CDT 01/17/2025 11:51 AM CDT Luis Hernandez NP LAB BLOOD ORDERABLES Final Result Performing Organization Address City/[facility]/ZIP Co de Phone Number AYAKA STEVENSON ([place]) 1 [facility] [place] [address] * Creatine kinase (CK), total (01/17/2025 11:41 AM CDT) CK 182 40 - 300 Units/L Blood 01/17/2025 11:4 1 AM CDT 01/17/2025 11:51 AM CDT Luis Hernandez ADMINISTRATIVE OPERATIONS COORDINATOR LAB BLOOD ORDERABLES Final Result Performing Organization Address [facility] de Phone Number [facility] ([place]) 1 [facility] [place] [address] * Comprehensive metabolic panel (01/17/2025 11:41 AM CDT) Sodium 139 135 - 145 mmol/L Potassium, pl 4.0 3.3 - 4.9 mmol/L [facility] ([place]) Chloride 102 97 - 110 mmol/L [facility] ([place]) CO2 25 22 - 32 mmol/L [facility] ([place]) Anion gap 12 2 - 15 mmol/L [facility] ([place]) BUN 15 6 - 25 mg/dL [facility] ([place]) Creatinine 0.96 0.80 - 1.30 mg/dL [facility] ([place]) Glucose 90 70 - 199 mg/dL [facility] ([place]) Comment: Interpretive Data Fasting glucose [...] BLOOD ORDERABLES Final Result Performing Organization Address City/[facility] Co de Phone Number [facility]A [facility] ([place]) 1 [facility] Department [place] [address] * ECG 12 lead (01/17/2025 11:32 AM CDT) 01/17/2025 11:3 2 AM CDT Narrative [facility] [employer] - 01/17/2025 12:24 PM CDT Vent Rate: 91 bpm RR Interval: 655 msec MS Interval: 148 msec QRS Duration: 104 msec QT Interval: 327 msec QTC Interval: 376 msec P-R-T [place]: 76 - 81 - 53 degrees IMPRESSION: SINUS RHYTHM POSSIBLE RIGHT VENTRICULAR CONDUCTION DELAY [RSR (QR) IN V1/V2] BORDERLINE ECG Electronically Signed By: Agustin Mart MD Luis Hernandez ADMINISTRATIVE OPERATIONS COORDINATOR ECG ORDERABLES Final Resul t Performing Organization Address City/[facility]/ZIP Co de Phone Number [facility] [employer] [facility] from Last 3 Months Care Teams Squeak Rattle And Leak Repairer Relationship Specialty Start Date End Date No, Physician PCP - General 01/17/25
--- NOTE | 2025-04-05 18:27 | ED_ITS ---
HPI - Abdominal Pain General Chief Complaint: Abdominal Pain Stated Complaint: Stomach Pain Time Seen by Provider: 04/05/25 18:24 Source: patient Mode of arrival: ambulatory Limitations: no limitations History of Present Illness HPI narrative: Paul is a 24-year-old male patient presenting to the clinic today with complaints of left upper quadrant abdominal pain/bulge x3 months. He reports he was triaged at [place] [facility] last night and he left without being seen. He had CBC, CMP, lipase, EKG, and chest x-ray performed while he was there. He did not stay for results or further treatment. He denies any nausea, vomiting, or diarrhea. Last bowel movement was 3 days ago. States that the pain is a 7/10 with movement otherwise it is a 5/10 while setting. Pain comes and goes and is a dull aching pain. Feels as though there is a bulge in the left upper quadrant. He is concerned for a hernia. Denies any urinary symptoms or any blood in his stool. Denies any known injury. He has not had any changes in b owel. Pain is worse with movement and comes and goes. Related Data Home Medications ?Medication ?Instructions ?Recorded ?Confirmed ?Last Taken ?Type No Home Medications 04/05/25 04/05/25 Unknown History Allergies Allergy/AdvReac Type Severity Reaction Status Date / Time No Known Allergies Allergy Mild Verified 04/05/25 18:30 Review of Systems Review of Systems: Pertinent positives per HPI. Patient denies any fever, chills, rash, headache, visual changes, dizziness, cough, runny nose, sore throat, shortness of breath, chest pain, palpitations, nausea, vomiting, diarrhea, constipation, or any urinary issues. [facility] Past Medical History Medical History Patient denies significant medical history Surgical History Surgical History No pertinent past surgical history Family History Family History Mother No problems noted. Social History Social History Smoking status: Current every day smoker Tobacco type: e-cigarettes/vaping Alcohol intake: never Substance use: current Substance use type: marijuana Living arrangements: with family Occupation/Education: student Gender identity (if verbalized by the patient): Male Spiritual care concerns: No Comments At the time of my signature, I reviewed and agree with the nursing past medical, surgical, social, and family history. There is no relevant family history pertinent to the patient complaint. Exam Narrative: General: Well-developed, well nourished, in no apparent distress. Head: Normocephalic, atraumatic. Cardio: Regular rate and rhythm, s1 and s2 normal, no murmur appreciated. Resp: Clear to auscultation bilaterally, no rhonchi, rales, wheezing or rubs. Abdomen: Soft, pliable, bowel sounds present in all quadrants, tender to palpation over the left upper quadrant, no organomegly, no CVAT tenderness. No palpable bulge or reducible hernia in the left upper quadrant Course Course Emergency Course: Portions of this record may have been created with voice recognition software. Level of Care: Express Care Visit Vital Signs Vital signs: Vital Signs Temperature 36.9 C 04/05/25 18:29 Pulse Rate 64 04/05/25 18:29 Respiratory Rate 18 04/05/25 18:29 Blood Pressure 115/71 04/05/25 18:29 Pulse Oximetry 99 04/05/25 18:29 Oxygen Delivery Room Air 04/05/25 18:29 Temperature 36.9 C 04/05/25 18:29 Pulse Rate 64 04/05/25 18:29 Respiratory Rate 18 04/05/25 18:29 Blood Pressure 115/71 04/05/25 18:29 Pulse Oximetry 99 04/05/25 18:29 Oxygen Delivery Room Air 04/05/25 18:29 Vital signs reviewed MDM - Abdominal Pain MDM Narrative Medical decision making narrative: At the time of visit patient is resting comfortably on the exam table. Patient appears to be nontoxic. EKG: EKG showed: SINUS RHYTHM HR 79 POSSIBLE LEFT ATRIAL ENLARGEMENT [-0.1mV P WAVE IN V1/V2] POSSIBLE RIGHT VENTRICULAR CONDUCTION DELAY [RSR (QR) IN V1/V2] WITHIN NORMAL LIMITS on 04/04/25 Labs: CBC shows white blood cell count of 10.4 otherwise unremarkable, CMP, PT, PTT, troponin, and lipase were all normal on 04/04/25 Diagnostics: Chest x-ray with was negative for any acute cardiopulmonary process on 04/04/25 Plan: I suspect patient has chronic left upper abdominal pain. He has not taken any Tylenol or Motrin to treat his symptoms. Has not had a bowel movement in 3 days. Offered to do abdominal x-ray to rule out constipation as potential cause and patient declined. Offer to send patient back to the ER for further evaluation and he declined. Patient thinks he may have a hernia and is wanting testing for hernia. No bulge or reproducible hernia was palpable. Explained to the patient that we cannot do this test in the clinic and he would have does go to the ER or follow-up with his primary care provider. All labs, EKG, and chest x-ray was reviewed with the patient. Supportive measures were discussed with the patient and they voiced understanding discharge instructions and agrees to treatment plan. Return precautions reviewed Differential Diagnosis Differential diagnosis: Likely abdominal pain, acute appendicitis, calculus of kidney, constipation, diverticulitis, gastroenteritis, pancreatitis, small bowel obstruction and other (Abdominal wall strain, hernia) Discharge Plan Discharge Clinical Impression: Left upper quadrant abdominal pain Patient Disposition: Home Condition: Stable Instructions: Antibiotic Form, Abdominal Pain (ED) Additional Instructions: Labs, chest x-ray, and EKG was reviewed with the patient Offered abdominal x-ray in the clinic today patient declined Declined going back to the ER for further evaluation. Recommend increasing fluids and stay well hydrated May take Tylenol/Motrin as needed for pain or fever Increase fiber in your diet Follow-up with primary care provider for further evaluation-may be ultrasound or CT scan to determine left upper quadrant abdominal pain etiology Patient Language: Polish Prescriptions: No Action No Home Medications Follow-up/Referrals: PHYSICIAN,CUPOLA TENDER HELPER [Primary Care Provider] - Time of Disposition: 18:44 Quality NIH Nursing Documentation ED NIHSS nursing documentation: reviewed/agree
--- OUTSIDE RECORDS SUMMARY | 2025-04-05 18:27 | XMS_ITS | Data Portability ---
Author Organization [facility], Main Office Address [address] [place] [address] Assessment No assessment recorded. Plan of Treatment Reminders Order Date Submit Date Provider Last Modified By Organization Details Last Modified Time Details Appointments None recorded. Lab None recorded. Referral counseling referral 2022 023 [email or web address] 3 [facility], [address] [place] [address], [place], [address], 3 09:34:56 Procedures None recorded. Surgeries None recorded. Imaging None recorded. Medication Orders escitalopra m 10 mg tablet 2022 023 [facility] [address], [address] , [place], [address], 5 16:23:23 Patient TargetsNo targets recorded. Patient InstructionsNo instructions recorded. Reason for Referral Counseling Referral for Mixe d anxiety and depressive disorder Referring Physician: Giorgio Restrepo, Family Medicine, Encounter Date: 03/04/2023 Results Created Date Observation Date Name Description Value Unit Range Abnormal Flag Note LastModifiedBy Organization Detail LastModifiedTime 11/08/19 22 11/08/2021 urina lysis , dipst ick Color Dark Yellow Not Available _[address] , [place], [address], 11/08/2021 11:41:59 11/08/19 22 11/08/2021 urina lysis , dipst ick Appearance Slight ly Cloudy Not Available [facility] , [place], [address], 11/08/2021 11:41:59 11/08/19 22 11/08/2021 urina lysis , dipst ick Glucose (reference range: negative mg/dl) Negati ve Not Available [place] [address], [place], [address], 11/08/2021 11:41:59 11/08/19 22 11/08/2021 urina lysis , dipst ick Bilirubin (reference range: negative mg/dl) Small Not Available [place] [address], [place], [address], 11/08/2021 11:41:59 11/08/19 22 11/08/2021 urina lysis , dipst ick Ketone (reference range: negative mg/dl) Negati ve Not Available [place] [address], [place], [address], 11/08/2021 11:41:59 11/08/19 22 11/08/2021 urina lysis , dipst ick Specific Dunbar (reference range: 1.005-1.030) 1.030 Not Available [place] [address], [place], [address], 11/08/2021 11:41:59 11/08/19 22 11/08/2021 urina lysis , dipst ick Blood (reference range: negative Alfredo/ l) Negati ve Not Available [place] [address], [place], [address], 11/08/2021 11:41:59 11/08/19 22 11/08/2021 urina lysis , dipst ick pH (reference range: 5-7) 5.5 Not Available [place] [address] [place], [address], 11/08/2021 11:41:59 11/08/1911/08/2021 urina lysis , dipst ick Protein (reference range: negative mg/dl) 30 Not Available [address] , [place], [address], 11/08/2021 11:41:59 11/08/19 22 11/08/2021 urina lysis , dipst ick Urobilinogen (reference range: 0.2-1 mg/dl) 0.2 Not Available [address] , [place], [address], 11/08/2021 11:41:59 11/08/19 22 11/08/2021 urina lysis , dipst ick Nitrite (reference rage: negative mg/dl) negati ve Not Available [address] , [place], [address], 11/08/2021 11:41:59 11/08/1911/08/2021 urina lysis , dipst ick Leukocytes (reference range: negative sue/ l) Negati ve Not Available [address] , [place], [address], 11/08/2021 11:41:59 06/19/20 21 06/19/2021 XR, hand, 3 or more view No observ ation record ed. [id number] [facility] [address], [place], [address], 11/26/2022 09:24:56 07/03/20 XR, hand, 3 or more view No observ ation record ed. [id number] [facility] [address], [place], [address], 11/26/2022 09:24:56 07/17/2007/23/2021 XR, hand, 3 or more view No observ ation record ed. [id number] [facility] [place] [address], [place], [address], 11/26/2022 09:24:56 12/29/1912/28/2022 CT, abdom en + pelvi s, w/ contr ast No observ ation record ed. [facility] [address], [place], [address], 12/29/2022 08:49:27 Result Notes None recorded. Problems Name Problem SNOMED Code Status Onset Date Resolution Date Notes Provider Name and Address Organization Details Recorded Time Pain in throat 692817181 Completed 11/18/2024 AGAPITO Dasilva [address], [place], [address] , [employer] 5 16:25:24 Adjustme nt disorder 81827700 Active extreme Not Available [facility] 3 09:19:07 Irritabl e bowel syndrome with diarrhea 608562570 Active 2021 Not Available [facility] 3 09:19:08 Abdomina l pain 18430599 Completed 11/18/2024 AGAPITO Dasilva [address], [place], [address] , [employer] 5 16:25:17 Pain of hip region 10292273 Completed 11/18/2024 AGAPITO Dasilva [address], [place], [address] , [employer] 5 16:25:22 Mixed anxiety and depressi ve disorder 309622875 Active 2022 AGAPITO Robles [address], [address], [place], [address] , [place] [facility] [place] [facility] 3 08:29:19 Problem Notes None recorded. Medical Equipment None Reported. Allergies No known drug allergies Medications Name Sig Start Date Stop Date Status Note LastModified by Organization Details LastModified Time doxycycline hyclate 100 mg capsule Take 1 capsule twice a day by oral route for 7 days. active Not Available Not Available No t Available cetirizine 10 mg tablet Take 1 tablet every day by oral route for 30 days. active Not Available Not Available No t Available hydrocodone 5 mg-acetamin ophen 325 mg tablet Take 1 tablet every 6 hours by oral route. 12/25 completed Not Available Not Available Not Available triamcinolo ne acetonide 0.1 % topical cream APPLY A THIN LAYER TO THE AFFECTED AREA(S) BY TOPICAL ROUTE 2 TIMES PER DAY active Not Available Not Available No t Available oxycodone-a cetaminophe n 5 mg-325 mg tablet TAKE 1 TABLET BY MOUTH EVERY 4 HOURS NEEDED FOR PAIN 06/05 completed Not Available Not Available Not Available famotidine 20 mg tablet TAKE 1 TABLET BY MOUTH ONCE DAILY 11/18 completed Not Available Not Available Not Available Proctozone- HC 2.5 % topical cream perineal applicator APPLY A THIN LAYER TO THE AFFECTED AREA(S) BY TOPICAL ROUTE 2-4 TIMESDAIL Y 11/18 completed Not Available Not Available Not Available ranitidine 150 mg tablet Take 1 tablet twice a day by oral route. 06/05 completed Not Available Not Available Not Available hydroxyzine HCl 25 mg tablet TAKE 1 TABLET BY MOUTH THREE TIMES DAILY NEEDED 11/18 completed Not Available Not Available Not Available ceftriaxone 500 mg solution for injection Take 500 mg by injection route for 1 day. 12/25 completed Not Available Not Available Not Available mirtazapine 15 mg tablet TAKE 1 TABLET BY MOUTH ONCE DAILY AT BEDTIME FOR 90 DAYS 11/18 completed Not Available Not Available Not Available ibuprofen 600 mg tablet TAKE 1 TABLET BY MOUTH THREE TIMES DAILY NEEDED FOR PAIN 11/18 completed Not Available Not Available Not Available dicyclomine 10 mg capsule Take 1 capsule 3 times a day by oral route as needed. 11/18 completed Not Available Not Available Not Available escitalopra m 10 mg tablet TAKE 1 TABLET BY MOUTH ONCE DAILY 11/18 completed Not Available Not Available Not Available ID NOW COVID-19 Test Kit TEST DIRECTED TODAY 11/18 completed Not Available Not Available Not Available Vitals Date Recorded Body mass index (BMI) Body height Oxygen saturation Oxygen saturation in Arterial blood by Pulse oximetry Heart rate Body temperature Body weight Systolic And Diastolic Provider Name and Address Organization Details Last Updated DateTime 2 19.5 kg/m2 182.88 cm 98 % 98 % 109 /min 97.4 [degF] 36992.3 g 120/72 mm[Hg] Not Available [facility] 3 09:17:10 Date Recorded Body mass index (BMI) Body height Oxygen saturation Oxygen saturation in Arterial blood by Pulse oximetry Heart rate Body temperature Body weight Systolic And Diastolic Provider Name and Address Organization Details Last Updated DateTime 2 20.5 kg/m2 182.88 cm 97.99 % 97.99 % 65.98 /min 97.2 [degF] 40486.4 5 g 105/72 mm[Hg] Not Available [facility] 3 09:17:10 Date Recorded Body height Body mass index (BMI) Body weight Body temperature Heart rate Oxygen saturation Oxygen saturation in Arterial blood by Pulse oximetry Systolic And Diastolic Provider Name and Address Organization Details Last Updated DateTime 3 182.88 cm 19.5 kg/m2 13651.3 g 98.3 [degF] 78 /min 99 % 99 % 120/80 mm[Hg] Louise Rebolledo RN [place] [facility] [place] [facility] 3 08:16:00 Date Recorded Body mass index (BMI) Body height Body weight Provider Name and Address Organization Details Last Updated DateTime 07/17/2021 20.3 kg/m2 182.88 cm 16477.86 g Not Available [facility] 11/26/2022 09:17:15 Date Recorded Body mass index (BMI) Body height Oxygen saturation Oxygen saturation in Arterial blood by Pulse oximetry Heart rate Body temperature Body weight Systolic And Diastolic Provider Name and Address Organization Details Last Updated DateTime 2 21.6 kg/m2 182.88 cm 97 % 97 % 99 /min 98.7 [degF] 33946.1 9 g 120/72 mm[Hg] Not Available [facility] 09:17:11 Social History Question Answer Notes LastModified by Organizat ion Details LastModified Time Tobacco Smoking Status Never Smoker Not Available [facility] 11/26/2022 09:13:24 Do You Have An Advance Directive? No [id number] Information not available 11/26/2022 What Is Your Level Of Caffeine Consumption? Moderate [id number] Information not available 11/26/2022 How Much Tobacco Do You Chew? None [id number] Information not available 11/26/2022 In The 14 Days Before Symptom Onset, Have You Had Close Contact With A Laboratory-confirm ed COVID-19 While That Case Was Ill? No [id number] Information not available 11/26/2022 In The 14 Days Before Symptom Onset, Have You Had Close Contact With A Person Who Is Under Investigation For COVID-19 While That Person Was Ill? No [id number] Information not available 11/26/2022 What Type Of Diet Are You Following? REGULAR [id number] Information not available 11/26/2022 Which Illicit Or Recreational Drugs Have You Used? No [id number] Information not available 11/26/2022 Have There Been Any Changes To Your Family Or Social Situation? No [id number] Information not available 11/26/2022 Are There Any Guns Present In Your Home? No [id number] Information not available 11/26/2022 What Is Your Home Situation? Father [id number] Information not available 11/26/2022 Do You Have A Medical Power Of Geomagnetician? No [id number] Information not available 11/26/2022 What Is Your Parents' Marital Status? Unmarried [id number] Information not available 11/26/2022 Do You Use Your Seat Belt Or Car Seat Routinely? Yes [id number] Information not available 11/26/2022 Do You Have Smoke And Carbon Monoxide Detectors In Your Home? Yes [id number] Information not available 11/26/2022 Are You Passively Exposed To Smoke? No [id number] Information not available 11/26/2022 Are There Any Smokers In Your House? Yes [id number] Information not available 11/26/2022 What Types Of Sporting Activities Do You Participate In? No [id number] Information not available 11/26/2022 Do You Use Sunscreen Routinely? Yes [id number] Information not available 11/26/2022 Sex: Unknown Functional Status Question Answer Note LastModified by Organizat ion Details LastModified Time What is your level of alcohol consumption? None [id number] Information not available 11/26/2022 Do you or have you ever used smokeless tobacco? 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 Never used electronic cigarettes [id number] 026 Information not available 11/26/2022 What is your exercise level? Moderate [id number] Information not available 11/26/2022 Mental Status Question Answer Note LastModified by Organizat ion Details LastModified Time Are you or have you been involved with bullying? No [id number] Information not available 11/26/2022 Family History Relationship Description Onset Age of this Age Resolved Age Notes LastModified by Organization Details LastModified Time Father Hypertensive disorder [id number] Not available 11/26/2022 09:13:40 Medical History No medical history recorded. Immunizations Vaccine Type Date Status Note Provider Nam e and Address Organization Details Recorded Time Influenza, split virus, quadrivalent, preservative 6 completed Not Available [facility] 11/26/2022 09:24:39 meningococcal MCV4P 5 completed Not Available [facility] 11/26/2022 09:24:39 Influenza, live, quadrivalent, intranasal 3 completed Not Available [facility] 11/26/2022 09:24:39 Tdap 3 completed Not Available [facility] 11/26/2022 09:24:39 HPV, quadrivalent 6 completed Not Available [facility] 11/26/2022 09:24:39 HPV, quadrivalent 6 completed Not Available [facility] 11/26/2022 09:24:40 HPV, quadrivalent 5 completed Not Available [facility] 11/26/2022 09:24:40 HPV, quadrivalent 5 completed Not Available [facility] 11/26/2022 09:24:40 Past Encounters Encounter ID Performer Location Encounter Start Date Encounter Closed Date Diagnosis/Indication Diagnosis SNOMED-CT Code Diagnosis ICD10 Code Diagnosis Note [id number] AGAPITO Robles [facility] [address] [place] [address] 01/22/2021 00:00:00 01/22/2021 20:43:58 [id number] DEEPTI Han [facility] [address] [place] [address] 06/05/2021 00:00:00 06/05/2021 16:35:51 [id number] Tanner Elam MD [facility] [address] [place] [address] 06/12/2021 00:00:00 06/12/2021 14:24:02 [id number] Tanner Elam MD [facility] [address] [place] [address] 06/19/2021 00:00:00 06/19/2021 17:08:21 [id number] Tanner Elam MD [facility] [address] [place] [address] 07/03/2021 00:00:00 07/03/2021 17:29:33 [id number] Tanner Elam MD [facility] [address] [place] [address] 07/17/2021 00:00:00 07/17/2021 17:45:02 [id number] DEEPTI Nath [facility] [address] [place] [address] 11/08/2021 00:00:00 11/08/2021 13:08:44 [id number] _ATHN_MIGR ATION_1 _ATHENA_M IGRATION_ DEFAULT_1 _1 , 12/25/2021 00:00:00 12/25/2021 16:11:43 [id number] DEEPTI Nath [facility] [address] [place] [address] 07/21/2022 00:00:00 07/21/2022 16:55:16 [id number] AGAPITO Robles [facility] [address] [place] [address] 03/04/2023 08:02:11 03/04/2023 08:43:29 Mixed anxiety and depressive disorder 272409062 F41.8 ChronicNot well controlled with prn hydroxyzin e alone. New referral for counseling generated. Denies any SI/HI at this time. Will add on escitalopr am 10mg daily. Discussed with pt that sx may take several weeks to improve with meds. Pt to stop medication and be seen if s/e develop. Pt to send update through portal in 2 weeks. --RTO 4 weeks for f/u on medication Health Concerns Section Related Observation LastModified by Organization Detai ls LastModified Time None Recorded Concern Status LastModified by Organization Details LastModified Time None Recorded Advance Directives Directive N: Payers Insurance Date Sequence Insurance Name Policy Number Policy Ahn Covered Member ID Ahn Member ID Guarantor Name 03/04/2023 1 [place] [employer] [place] [employer] Paul Pierson [id number] Paul Pierson 11/14/2024 1 [employer] BET[employer] [place] - DOS ON OR AFTER 2020 (MEDICAID REPLACEMENT - HMO) Paul Pierson [id number] Paul Pierson 11/14/2024 MEDICAID [place] DURABLE MEDICAL EQUIPMENT Paul Pierson [id number] Paul Pierson Notes Date Note Type Note Provider Name and Address Organization Details Recorded Time 03/04/2023 text/html 1. Pt in office for problem visit with c/o worsening anxiety/depression sx. States taking hydroxyzine TID for the past 2 weeks hasn't been helping. Denies any SI/HI at this time. AGAPITO Robles [address] [facility], [place], [address], [facility] 03/04/2023 12:23:06
[2025-04-05 18:29] VITALS: BP 115/71; PULSE 64; RESP 18; TEMP 36.9; O2SAT 99
== END 2025-04-05 18:46 | disposition home or self-care (01) ==
PROVIDERS: Emergency Provider Nurse Practitioner Family
DX: R10.12 Left upper quadrant pain (principal); F17.290 Nicotine dependence, other tobacco product, uncomplicated
CPT/HCPCS: 99211; G0463

== ENCOUNTER 2025-04-16 10:12 | Emergency (ER) | payer SELFPAY ==
--- OUTSIDE RECORDS SUMMARY | 2025-04-16 10:14 | XMS_ITS | Clinical Summary ---
Author Organization [facility] Address 1 [place] [address] Care Team Providers Care Information Broker Name Role Phone No, Physician Primary Care Provider [phone] Allergies No known active allergies Medications No known medications Encounters Date Type Department Care Team Description 01/17/2025 11:11 AM CDT - 01/17/2025 2:02 PM CDT Emergency [facility] Emergency Department 1 [place] [address] Electric shock, initial encounter (Primary Dx) Discharge [...] for uric acid stone formation. Source: [facility] Current Interpretive Data was last revised on [...] GENERAL ORDERABLES Final Result Performing Organization Address City/[facility]/ZIP Co de Phone Number AYAKA STEVENSON ([place]) 1 [facility] [place] [address] * Sepsis Lactate w/ Reflex (01/17/2025 11:41 AM CDT) Sepsis Lactate 1.3 0.7 - 2.0 mmol/L Blood 01/17/2025 11:4 1 AM CDT 01/17/2025 11:51 AM CDT us Luis Hernandez NP LAB BLOOD ORDERABLES Final Result Performing Organization Address [facility]/ZIP Co de Phone Number AYAKA STEVENSON ([place]) 1 [facility] [place] [address] * eGFR (01/17/2025 11:41 AM CDT) eGFR [...] LAB BLOOD ORDERABLES Final Result AYAKA STEVENSON ([place]) 1 [facility] [place] [address] * Differential, auto (01/17/2025 11:41 AM CDT) [...] 01/17/2025 11:51 AM CDT us Luis Hernandez METAL MOULDER'S ASSISTANT LAB BLOOD ORDERABLES Final Result AYAKA STEVENSON ([place]) 1 [facility] [place] Department of Laboratories [place], [place] [id number] * CBC with auto differential (01/17/2025 11:41 [...] RDW SD 39.3 35.7 - 48.[address] [facility] ([place]) NRBC abs 0.00 0.00 - 0.01 K/cumm [facility] ([place]) Blood 01/17/2025 11:4 1 AM CDT 01/17/2025 11:51 AM CDT us Luis Hernandez METAL MOULDER'S ASSISTANT LAB BLOOD ORDERABLES Final Result AYAKA STEVENSON ([place]) 1 [facility] [place] [address] * Creatine kinase (CK), total (01/17/2025 11:41 AM CDT) CK 182 40 - 300 Units/L Blood 01/17/2025 11:4 1 AM CDT 01/17/2025 11:51 AM CDT Luis Hernandez NP LAB BLOOD ORDERABLES Final Result AYAKA STEVENSON ([place]) 1 [facility] [place] [address] * Comprehensive metabolic panel (01/17/2025 11:41 AM [...] ORDERABLES Final Result AYAKA [facility] ([place]) 1 [facility] [place] [address] * ECG 12 lead (01/17/2025 11:32 AM CDT) 01/17/2025 11:3 2 AM CDT Narrative [facility] - 01/17/2025 12:24 PM CDT Vent Rate: 91 bpm RR Interval: 655 msec [place] Interval: 148 msec QRS Duration: 104 msec QT Interval: 327 msec QTC Interval: 376 msec P-R-T [place]: 76 - 81 - 53 degrees IMPRESSION: SINUS RHYTHM POSSIBLE RIGHT VENTRICULAR CONDUCTION DELAY [RSR (QR) IN V1/V2] BORDERLINE ECG Electronically Signed By: Agustin Mart MD us Luis Hernandez METAL MOULDER'S ASSISTANT ECG ORDERABLES Final Resul t [facility] from Last 3 Months Care Teams Information Broker Relationship Specialty Start Date End Date No, Physician PCP - General 01/17/25
--- OUTSIDE RECORDS SUMMARY | 2025-04-16 10:14 | XMS_ITS | Referral Summary ---
Author Organization [facility] Address 1 [place] [address] Care Team Providers Care Glass Artist Name Role Phone No, Physician Primary Care Provider [phone] Encounters Date Type Department Care Team Description 01/17/2025 11:11 AM CDT - 01/17/2025 2:02 PM CDT Emergency [facility] Emergency Department 1 [place] [address] Electric shock, initial encounter (Primary Dx) Discharge [...] tendency for uric acid stone formation. Source: [employer] Current Interpretive Data was last revised on 2017 Protein, ur ql Negative Negative [facility] (AARON) Glucose, ur ql Negative Negative [facility] ([place]) Ketones, ur Negative Negative [facility] (AARON) Bilirubin, ur Negative Negative [facility] (A[place]ON) Blood, ur Negative Negative [facility] ([place]) Urobilinogen, ur <2.0 <2.0 mg/dL CERRAN [facility] (AARON) Nitrite, ur Negative Negative CERNER A (A[place]) Leukocyte esterase, ur Negative Negative [facility] (A[place]ON) UA reflex comment Reflex conditions for microscopic UA and culture not met. AYAKA [facility] (AARON) Urine 01/17/2025 12:5 9 PM CDT 01/17/2025 1:05 PM CDT Luis Hernandez NP LAB MICROBIOLOGY - GENERAL ORDERABLES Final Result AYAKA [facility] (SCHENECTADY) 1 [facility] [place] [address] * Sepsis Lactate w/ Reflex (01/17/2025 11:41 AM CDT) Sepsis Lactate 1.3 0.7 - 2.0 mmol/L Blood 01/17/2025 11:4 1 AM CDT 01/17/2025 11:51 AM CDT Luis Hernandez NP LAB BLOOD ORDERABLES Final Result AYAKA STEVENSON ([place]) 1 [facility] [place] [address] * eGFR (01/17/2025 11:41 AM CDT) eGFR [...] 01/17/2025 11:51 AM CDT us Luis Hernandez CLEANING PROFESSIONAL LAB BLOOD ORDERABLES Final Result BRIANNER [facility] ([place]) 1 [facility] Department [place] [address] * Differential, auto (01/17/2025 11:41 AM CDT) [...] CDT 01/17/2025 11:51 AM CDT Luis Hernandez CLEANING PROFESSIONAL LAB BLOOD ORDERABLES Final Result AYAKA [facility] ([place]) 1 [facility] Department [place] [address] * CBC with auto differential (01/17/2025 11:41 [...] NRBC abs 0.00 0.00 - 0.01 K/cumm [facility] ([place]) Blood 01/17/2025 11:4 1 AM CDT 01/17/2025 11:51 AM CDT Luis Hernandez NP LAB BLOOD ORDERABLES Final Result Performing Organization Address City/[facility]/ZIP Co de Phone Number AYAKA STEVENSON ([place]) 1 [facility] [place] [address] * Creatine kinase (CK), total (01/17/2025 11:41 AM CDT) CK 182 40 - 300 Units/L Blood 01/17/2025 11:4 1 AM CDT 01/17/2025 11:51 AM CDT Luis Hernandez CLEANING PROFESSIONAL LAB BLOOD ORDERABLES Final Result Performing Organization Address [facility] de Phone Number [facility] STEVEN[facility] ([place]) 1 [facility] [place] [address] * Comprehensive metabolic panel (01/17/2025 11:41 AM CDT) Sodium 139 135 - 145 mmol/L Potassium, pl 4.0 3.3 - 4.9 mmol/L [facility] ([place]) Chloride 102 97 - 110 mmol/L [facility] ([place]) CO2 25 22 - 32 mmol/L [facility] ([place]) Anion gap 12 2 - 15 mmol/L [facility] ([place]) BUN 15 6 - 25 mg/dL [facility] ([place]) Creatinine 0.96 0.80 - 1.30 mg/dL [facility] (A[place]) Glucose 90 70 - 199 mg/dL [facility] ([place]) Comment: Interpretive Data Fasting glucose [...] BLOOD ORDERABLES Final Result Performing Organization Address City/[facility] Co de Phone Number AYAKA [facility] ([place]) 1 [facility] Department [place] [address] * ECG 12 lead (01/17/2025 11:32 AM CDT) 01/17/2025 11:3 2 AM CDT Narrative [facility] [employer] - 01/17/2025 12:24 PM CDT Vent Rate: 91 bpm RR Interval: 655 msec [place] Interval: 148 msec QRS Duration: 104 msec QT Interval: 327 msec QTC Interval: 376 msec P-R-T [place]: 76 - 81 - 53 degrees IMPRESSION: SINUS RHYTHM POSSIBLE RIGHT VENTRICULAR CONDUCTION DELAY [RSR (QR) IN V1/V2] BORDERLINE ECG Electronically Signed By: Agustin Mart MD Luis Hernandez CLEANING PROFESSIONAL ECG ORDERABLES Final Resul t Performing Organization Address City/[facility]/ZIP Co de Phone Number [facility] [employer] [facility] from Last 3 Months Care Teams Glass Artist Relationship Specialty Start Date End Date No, Physician PCP - General 01/17/25
--- OUTSIDE RECORDS SUMMARY | 2025-04-16 10:14 | XMS_ITS | Data Portability ---
Author Organization [facility], Main Office Address [address] [place] [address] Assessment No assessment recorded. Plan of Treatment Reminders Order Date Submit Date Provider Last Modified By Organization Details Last Modified Time Details Appointments None recorded. Lab None recorded. Referral counseling referral 2022 023 [email or web address] 3 [facility], [address] [place] [address], [place], [address], 3 09:34:56 Procedures None recorded. Surgeries None recorded. Imaging None recorded. Medication Orders escitalopra m 10 mg tablet 2022 023 [facility] [address], [address] , [place], [address], 5 16:23:23 Patient TargetsNo targets recorded. Patient InstructionsNo instructions recorded. Reason for Referral Counseling Referral for Mixe d anxiety and depressive disorder Referring Physician: Giorgio Restrepo, Family Medicine, Encounter Date: 03/04/2023 Results Created Date Observation Date Name Description Value Unit Range Abnormal Flag Note LastModifiedBy Organization Detail LastModifiedTime 11/08/19 22 11/08/2021 urina lysis , dipst ick Color Dark Yellow Not Available _[place] [address], [place], [address], 11/08/2021 11:41:59 11/08/19 22 11/08/2021 urina lysis , dipst ick Appearance Slight ly Cloudy Not Available [facility] , [place], [address], 11/08/2021 11:41:59 11/08/19 22 11/08/2021 urina lysis , dipst ick Glucose (reference range: negative mg/dl) Negati ve Not Available [place] [address], [place], [address], 11/08/2021 11:41:59 11/08/19 22 11/08/2021 urina lysis , dipst ick Bilirubin (reference range: negative mg/dl) Small Not Available [place] [address], [place], [address], 11/08/2021 11:41:59 11/08/19 22 11/08/2021 urina lysis , dipst ick Ketone (reference range: negative mg/dl) Negati ve Not Available [place] [address], [place], [address], 11/08/2021 11:41:59 11/08/19 22 11/08/2021 urina lysis , dipst ick Specific Cameron (reference range: 1.005-1.030) 1.030 Not Available [place] [address], [place], [address], 11/08/2021 11:41:59 11/08/19 22 11/08/2021 urina lysis , dipst ick Blood (reference range: negative Alfredo/ l) Negati ve Not Available [place] [address], [place], [address], 11/08/2021 11:41:59 11/08/19 22 11/08/2021 urina lysis , dipst ick pH (reference range: 5-7) 5.5 Not Available [place] [address] [place], [address], 11/08/2021 11:41:59 11/08/1911/08/2021 urina lysis , dipst ick Protein (reference range: negative mg/dl) 30 Not Available [address] , [place], [address], 11/08/2021 11:41:59 11/08/19 22 11/08/2021 urina lysis , dipst ick Urobilinogen (reference range: 0.2-1 mg/dl) 0.2 Not Available [address] , [place], [address], 11/08/2021 11:41:59 11/08/19 22 11/08/2021 urina lysis , dipst ick Nitrite (reference rage: negative mg/dl) negati ve Not Available [address] , [place], [address], 11/08/2021 11:41:59 11/08/1911/08/2021 urina lysis , dipst ick Leukocytes (reference range: negative sue/ l) Negati ve Not Available [address] , [place], [address], 11/08/2021 11:41:59 06/19/20 21 06/19/2021 XR, hand, 3 or more view No observ ation record ed. [id number] [facility] [place] [address], [place], [address], 11/26/2022 09:24:56 07/03/20 XR, hand, 3 or more view No observ ation record ed. [id number] [facility] [place] [address], [place], [address], 11/26/2022 09:24:56 07/17/2007/23/2021 XR, hand, 3 or more view No observ ation record ed. [id number] Z_[facility] [place] [address], [place], [address], 11/26/2022 09:24:56 12/29/1912/28/2022 CT, abdom en + pelvi s, w/ contr ast No observ ation record ed. [email or web address] [facility] [address], [place], [address], 12/29/2022 08:49:27 Result Notes None recorded. Problems Name Problem SNOMED Code Status Onset Date Resolution Date Notes Provider Name and Address Organization Details Recorded Time Pain in throat 163785867 Completed 11/18/2024 AGAPITO Dasilva [address], [place], [address] , [employer] 5 16:25:24 Adjustme nt disorder 78766974 Active extreme Not Available [facility] 3 09:19:07 Abdomina l pain 39621878 Completed 11/18/2024 AGAPITO Dasilva [address], [address], [place], [address] , [employer] 5 16:25:17 Pain of hip region 81743900 Completed 11/18/2024 AGAPITO Dasilva [address], [address], [place], [address] , [employer] 5 16:25:22 Irritabl e bowel syndrome with diarrhea 438039993 Active 2021 Not Available [facility] 3 09:19:08 Mixed anxiety and depressi ve disorder 874002545 Active 2022 AGAPITO Robles [address], [address], [place], [address] , [place] [facility] 3 08:29:19 Problem Notes None recorded. Medical [...] % 98 % 109 /min 97.4 [degF] 02180.3 g 120/72 mm[Hg] Not Available [facility] 3 09:17:10 Date Recorded Body mass index (BMI) Body height Oxygen saturation Oxygen saturation in Arterial blood by Pulse oximetry Heart rate Body temperature Body weight Systolic And Diastolic Provider Name and Address Organization Details Last Updated DateTime 2 20.5 kg/m2 182.88 cm 97.99 % 97.99 % 65.98 /min 97.2 [degF] 54880.4 5 g 105/72 mm[Hg] Not Available [facility] 3 09:17:10 Date Recorded Body height Body mass index (BMI) Body weight Body temperature Heart rate Oxygen saturation Oxygen saturation in Arterial blood by Pulse oximetry Systolic And Diastolic Provider Name and Address Organization Details Last Updated DateTime 3 182.88 cm 19.5 kg/m2 36392.3 g 98.3 [degF] 78 /min 99 % 99 % 120/80 mm[Hg] Louise Rebolledo RN [place] [facility] [place] [employer] [facility] 3 08:16:00 Date Recorded Body mass index (BMI) Body height Body weight Provider Name and Address Organization Details Last Updated DateTime 07/17/2021 20.3 kg/m2 182.88 cm 54804.86 g Not Available [facility] 11/26/2022 09:17:15 Date Recorded Body mass index (BMI) Body height Oxygen saturation Oxygen saturation in Arterial blood by Pulse oximetry Heart rate Body temperature Body weight Systolic And Diastolic Provider Name and Address Organization Details Last Updated DateTime 2 21.6 kg/m2 182.88 cm 97 % 97 % 99 /min 98.7 [degF] 97951.1 9 g 120/72 mm[Hg] Not Available [facility] 09:17:11 Social History Question Answer Notes LastModified by Organizat ion Details LastModified Time Tobacco Smoking Status Never Smoker Not Available [facility] 11/26/2022 09:13:24 Do You Have An Advance Directive? No [id number] Information not available 11/26/2022 What Is Your Level Of Caffeine Consumption? Moderate [id number] Information not available 11/26/2022 How Much Tobacco Do You Chew? None [id number] 2101 Information not available 11/26/2022 In The 14 Days Before Symptom Onset, Have You Had Close Contact With A Laboratory-confirm ed COVID-19 While That Case Was Ill? No [id number] Information not available 11/26/2022 In The 14 Days Before Symptom Onset, Have You Had Close Contact With A Person Who Is Under Investigation For COVID-19 While That Person Was Ill? No [id number] Information not available 11/26/2022 What Type Of Diet Are You Following? REGULAR [id number] Information not available 11/26/2022 Which Illicit Or Recreational Drugs Have You Used? No [id number] Information not available 11/26/2022 Have There Been Any Changes To Your Family Or Social Situation? No [id number] Information not available 11/26/2022 Are There Any Guns Present In Your Home? No [id number] Information not available 11/26/2022 What Is Your Home Situation? Father [id number].[id number] 4387 Information not available 11/26/2022 Do You Have A Medical Power Of Medicine And Health Service Manager? No [id number].[id number] 2695 Information not available 11/26/2022 What Is Your Parents' Marital Status? Unmarried MIGRATION.[id number] 8507 Information not available 11/26/2022 Do You Use Your Seat Belt Or Car Seat Routinely? Yes [id number] Information not available 11/26/2022 Do You Have Smoke And Carbon Monoxide Detectors In Your Home? Yes [id number] Information not available 11/26/2022 Are You Passively Exposed To Smoke? No [id number].996644 1003 Information not available 11/26/2022 Are There Any Smokers In Your House? Yes [id number].[id number] 2479 Information not available 11/26/2022 What Types Of Sporting Activities Do You Participate In? No MIGRATION.696901 7991 Information not available 11/26/2022 Do You Use Sunscreen Routinely? Yes [id number] Information not available 11/26/2022 Sex: Unknown Functional Status Question Answer Note LastModified by Organizat ion Details LastModified Time What is your level of alcohol consumption? None [id number] Information not available 11/26/2022 Do you or have you ever used smokeless tobacco? 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 Never used electronic cigarettes [id number].[id number] 026 Information not available 11/26/2022 What is your exercise level? Moderate [id number].[id number] 026 Information not available 11/26/2022 Mental Status Question Answer Note LastModified by Organizat ion Details LastModified Time Are you or have you been involved with bullying? No [id number] Information not available 11/26/2022 Family History Relationship Description Onset Age of this Age Resolved Age Notes LastModified by Organization Details LastModified Time Father Hypertensive disorder [id number] Not available 11/26/2022 09:13:40 Medical History No medical history recorded. Immunizations Vaccine Type Date Status Note Provider Nam e and Address Organization Details Recorded Time Influenza, split virus, quadrivalent, preservative 6 completed Not Available [facility] 11/26/2022 09:24:39 meningococcal MCV4P 5 completed Not Available [facility] 11/26/2022 09:24:39 Influenza, live, quadrivalent, intranasal 3 completed Not Available [facility] 11/26/2022 09:24:39 Tdap 3 completed Not Available [facility] 11/26/2022 09:24:39 HPV, quadrivalent 6 completed Not Available [facility] 11/26/2022 09:24:39 HPV, quadrivalent 6 completed Not Available [facility] 11/26/2022 09:24:40 HPV, quadrivalent 5 completed Not Available [facility] [place] 11/26/2022 09:24:40 HPV, quadrivalent 5 completed Not Available [facility] 11/26/2022 09:24:40 Past Encounters Encounter ID Performer Location Encounter Start Date Encounter Closed Date Diagnosis/Indication Diagnosis SNOMED-CT Code Diagnosis ICD10 Code Diagnosis Note [id number] AGAPITO Robles S_[facility] [address] [place] [address] 01/22/2021 00:00:00 01/22/2021 20:43:58 [id number] DEEPTI Han S_[facility] [place] [address] [facility] [address] [place] [address] 06/05/2021 00:00:00 06/05/2021 16:35:51 [id number] Tanner Elam MD [facility] [place] [address] [facility] [address] [place] [address] 06/12/2021 00:00:00 06/12/2021 14:24:02 [id number] Tanner Elam MD [facility] [place] [address] [facility] [address] [place] [address] 06/19/2021 00:00:00 06/19/2021 17:08:21 [id number] Tanner Elam MD [facility] [place] [address] [facility] [address] [place] [address] 07/03/2021 00:00:00 07/03/2021 17:29:33 [id number] Tanner Elam MD [facility] [place] [address] [facility] [address] [place] [address] 07/17/2021 00:00:00 07/17/2021 17:45:02 [id number] DEEPTI Nath S_[facility] [address] [place] [address] 11/08/2021 00:00:00 11/08/2021 13:08:44 [id number] _ATHN_MIGR ATION_1 _ATHENA_M IGRATION_ DEFAULT_1 _1 , 12/25/2021 00:00:00 12/25/2021 16:11:43 [id number] DEEPTI Nath [facility] Primary Care [facility] [address] [place] [address] 07/21/2022 00:00:00 07/21/2022 16:55:16 [id number] AGAPITO Robles [facility] Primary Care [facility] [address] [place] [address] 03/04/2023 08:02:11 03/04/2023 08:43:29 Mixed anxiety and depressive disorder 780262353 F41.8 ChronicNot well controlled with prn hydroxyzin [...] Ahn Member ID Guarantor Name 03/04/2023 1 MEDICA[place] DEPARTMENT [place] PUBLIC AID Paul Pierson [id number] Paul Pierson 11/14/2024 1 [employer] BETTER HEALTH OF [place] - DOS ON OR AFTER 2020 (MEDICAID REPLACEMENT - HMO) Paul Pierson [id number] Paul Pierson 11/14/2024 MEDICAID [place] DURABLE MEDICAL EQUIPMENT Paul Pierson [id number] Paul Pierson Notes Date Note Type Note Provider Name and Address Organization Details Recorded Time 03/04/2023 text/html 1. Pt in office for problem visit with c/o worsening anxiety/depression sx. States taking hydroxyzine TID for the past 2 weeks hasn't been helping. Denies any SI/HI at this time. AGAPITO Robles [address] [facility], [place], [address], [facility] 03/04/2023 12:23:06
--- NOTE | 2025-04-16 10:19 | ED_ITS ---
HPI - URI/Sore Throat General Chief Complaint: Upper Respiratory Infection Stated Complaint: strep throat Time Seen by Provider: 04/16/25 10:13 patient presents to Express Care with complaints of sore throat, fatigue, headache, pain to the front of the neck, minimal left-sided abdominal pain that began about 9 days ago. Patient reports using ibuprofen and NyQuil with minimal relief of symptoms. No known sick contacts. Denies fever, chills, body aches, dizziness, nausea, vomiting, diarrhea, shortness of breath, cough. Related Data Home Medications ?Medication ?Instructions ?Recorded ?Confirmed ?Last Taken ?Type No Home Medications 04/05/25 04/05/25 Unknown History Allergies Allergy/AdvReac Type Severity Reaction Status Date / Time No Known Allergies Allergy Mild Verified 04/05/25 18:30 Review of Systems Constitutional: Constitutional: Reports as per HPI, Denies chills, Reports fatigue, Denies fever(s) and Denies weakness Eyes: Eyes: Reports no additional eye complaints ENT: Reports as per HPI, Denies vertigo, Denies dizziness, Denies nasal congestion and Reports sore throat Cardiovascular: Cardiovascular: Reports no additional cardiovascular complaints Respiratory: Respiratory: Reports as per HPI, Denies chest congestion and Denies cough Gastrointestinal: Gastrointestinal: Reports as per HPI, Reports abdominal pain, Denies diarrhea, Denies nausea and Denies vomiting Genitourinary: Genitourinary: Reports no additional male genitourinary complaints Musculoskeletal: Musculoskeletal: Reports no additional musculoskeletal complaints Integumentary/Breasts: Skin/Breast: Reports as per HPI and Denies rash Neurologic: Reports as per HPI and Reports headache(s) Psychiatric: Psychiatric: Reports no additional psychiatric complaints Endocrine: Endocrine: Reports no additional endocrine complaints Hematologic/Lymphatic: Hematologic/Lymphatic: Reports no additional hematologic/lymphatic complaints [facility] Past Medical History Medical History Patient denies significant medical history Surgical History Surgical History No pertinent past surgical history Family History Family History Mother No problems noted. Social History Social History (Reviewed 04/05/25 @ 18:46 by EZEQUIEL Allen Smoking status: Current every day smoker Tobacco type: e-cigarettes/vaping Alcohol intake: never Substance use: current Substance use type: marijuana Living arrangements: with family Occupation/Education: student Gender identity (if verbalized by the patient): Male Spiritual care concerns: No Exam Const: General: healthy appearing and no acute distress Nutritional Appearance: well nourished Orientation/consciousness: patient oriented x3 Limitations: no limitations HENMT: Head: normal to inspection Ears: external ears normal and TM's normal bilaterally Face/Nose/Sinus: Normal external nose present and Normal nares present Face and sinus: normal facial exam and sinuses nontender Mouth: Yes Normal oral and palatal mucosa present, Yes lip normal and Yes moist mucous membranes Throat: posterior oropharynx abnormal (minimal erythema noted, no edema or exudate. ) Neck: Neck: lymphadenopathy (bilateral anterior cervical ) Resp: Effort & Inspection: normal respiratory effort Auscultation: clear to auscultation bilaterally Cardio: Rate: regular rate Rhythm: regular rhythm GI: Inspection: non-distended GI Palp: Yes Soft to palpation, No Tenderness to palpation present (GI), No Guarding due to palpation present (GI), No Rigid due to palpation, No Hernia present, No Palpable mass present and No Rebound tenderness present Auscultation: normal bowel sounds Back/Spine/Pelvis: Back: no CVA tenderness Skin: General skin exam: normal color Rashes: no rashes Wounds: no wounds Neuro: General: patient oriented x3 Speech: normal speech Gait exam (Neuro): Normal gait present Psych: Mental Status: mental status grossly normal Affect: normal affect Attitude: cooperative Course Course Level of Care: Express Care Visit Vital Signs Vital signs: Vital Signs Temperature 98.7 F 04/16/25 10:20 Pulse Rate 88 04/16/25 10:20 Respiratory Rate 18 04/16/25 10:20 Blood Pressure 121/65 04/16/25 10:20 Pulse Oximetry 100 04/16/25 10:20 Oxygen Delivery Room Air 04/16/25 10:20 Temperature 98.7 F 04/16/25 10:20 Pulse Rate 88 04/16/25 10:20 Respiratory Rate 18 04/16/25 10:20 Blood Pressure 121/65 04/16/25 10:20 Pulse Oximetry 100 04/16/25 10:20 Oxygen Delivery Room Air 04/16/25 10:20 MDM - URI/Sore Throat MDM Narrative Medical decision making narrative: Discharge instructions reviewed with patient, as well as provided in writing per nursing staff. The instructions also include specific and strict return/GO TO THE ER as well as f/u information. All questions have been answered, and the patient deny any further questions with discharge and discharge plan. Differential Diagnosis Differential diagnosis: Likely upper respiratory infection, otitis media, sinusitis, viral infection, influenza and pharyngitis Medical Records Attestation: I reviewed the patient's medical records. Lab Data Attestation: I reviewed the patient's lab results. Lab results narrative: Strep testing negative, culture sent. [place] negative Discharge Plan Discharge Clinical Impression: Pharyngitis Patient Disposition: Home Condition: Stable Instructions: Antibiotic Form, Tonsillitis in Children (ED) Additional Instructions: The rapid strep swab was negative today at [facility]. You will be notified in a few days if the culture comes back positive for strep, and appropriate antibiotics will be called in for him at that time. His symptoms are likely due to a viral illness, which is not treated with antibiotics. Viral symptoms can be present for up to 10-14 days. Take Tylenol or ibuprofen for fever or pain. Rest and stay hydrated. Follow up with your PCP in 10 days if symptoms are not improving, or sooner if symptoms are worsening. Patient Language: Argentine Prescriptions: New prednisone 50 mg tablet 50 mg PO DAILY Qty: 7 0RF No Action No Home Medications Follow-up/Referrals: PHYSICIAN,SENIOR SERVICE TECHNICIAN [Primary Care Provider] - Time of Disposition: 10:49
[2025-04-16 10:20] VITALS: BP 121/65; PULSE 88; RESP 18; TEMP 37.1; O2SAT 100
[2025-04-16 10:50] LABS: EDMONONEGPOS Negative (Positive); EDSTREPNEGPOS1 Negative (Negative)
== END 2025-04-16 11:05 | disposition home or self-care (01) ==
PROVIDERS: Emergency Provider Nurse Practitioner Family; Referring Provider Emergency Medicine
DX: J02.9 Acute pharyngitis, unspecified (principal); F17.290 Nicotine dependence, other tobacco product, uncomplicated; F12.90 Cannabis use, unspecified, uncomplicated
CPT/HCPCS: 36416; 86308; 87070; 87081; 87880; 99213; G0463

== ENCOUNTER 2025-04-21 11:21 | Emergency (ER) | payer SELFPAY ==
--- NOTE | ~2025-04-21 | XR_ITS ---
XR chest 2V 04/21/2025 13:15 Indication: Chest pain and shortness of breath for 3 days Procedure: 2 view chest Comparison: 04/04/2025 Findings: Impression: 1: Reviewed, dictated and finalized at location A. Impression: 1:
--- OUTSIDE RECORDS SUMMARY | 2025-04-21 11:23 | XMS_ITS | Data Portability ---
Author Organization [facility] [employer], Main Office Address [address] [place] [address] Assessment No assessment recorded. Plan of Treatment Reminders Order Date Submit Date Provider Last Modified By Organization Details Last Modified Time Details Appointments None recorded. Lab None recorded. Referral counseling referral 2022 023 [email or web address] 3 [facility], [address] [place] [address], [place], [address], 3 09:34:56 Procedures None recorded. Surgeries None recorded. Imaging None recorded. Medication Orders escitalopra m 10 mg tablet 2022 023 [facility] [address] , [place], [address], 5 16:23:23 Patient TargetsNo targets recorded. Patient InstructionsNo instructions recorded. Reason for Referral Counseling Referral for Mixe d anxiety and depressive disorder Referring Physician: Giorgio Restrepo, Family Medicine, Encounter Date: 03/04/2023 Results Created Date Observation Date Name Description Value Unit Range Abnormal Flag Note LastModifiedBy Organization Detail LastModifiedTime 11/08/19 22 11/08/2021 urina lysis , dipst ick Color Dark Yellow Not Available [address] , [place], [address], 11/08/2021 11:41:59 11/08/19 22 11/08/2021 urina lysis , dipst ick Appearance Slight ly Cloudy Not Available [facility] , [place], [address], 11/08/2021 11:41:59 11/08/19 22 11/08/2021 urina lysis , dipst ick Glucose (reference range: negative mg/dl) Negati ve Not Available [place] [address], [place], [address], 11/08/2021 11:41:59 11/08/19 22 11/08/2021 urina lysis , dipst ick Bilirubin (reference range: negative mg/dl) Small Not Available [place] [address], [place], [address], 11/08/2021 11:41:59 11/08/19 22 11/08/2021 urina lysis , dipst ick Ketone (reference range: negative mg/dl) Negati ve Not Available [place] [address], [place], [address], 11/08/2021 11:41:59 11/08/19 22 11/08/2021 urina lysis , dipst ick Specific [place] (reference range: 1.005-1.030) 1.030 Not Available [place] [address], [place], [address], 11/08/2021 11:41:59 11/08/19 22 11/08/2021 urina lysis , dipst ick Blood (reference range: negative Alfredo/ l) Negati ve Not Available [place] [address], [place], [address], 11/08/2021 11:41:59 11/08/19 22 11/08/2021 urina lysis , dipst ick pH (reference range: 5-7) 5.5 Not Available [place] [address] [place], [address], 11/08/2021 11:41:59 11/08/1911/08/2021 urina lysis , dipst ick Protein (reference range: negative mg/dl) 30 Not Available [address] , [place], [address], 11/08/2021 11:41:59 11/08/19 22 11/08/2021 urina lysis , dipst ick Urobilinogen (reference range: 0.2-1 mg/dl) 0.2 Not Available [address] , [place], [address], 11/08/2021 11:41:59 11/08/19 22 11/08/2021 urina lysis , dipst ick Nitrite (reference rage: negative mg/dl) negati ve Not Available [address] , [place], [address], 11/08/2021 11:41:59 11/08/1911/08/2021 urina lysis , dipst ick Leukocytes (reference range: negative sue/ l) Negati ve Not Available [address] , [place], [address], 11/08/2021 11:41:59 06/19/20 21 06/19/2021 XR, hand, 3 or more view No observ ation record ed. [id number] [facility] [place] [address], [place], [address], 11/26/2022 09:24:56 07/03/20 XR, hand, 3 or more view No observ ation record ed. [id number] [facility] [place] [address], [place], [address], 11/26/2022 09:24:56 07/17/2007/23/2021 XR, hand, 3 or more view No observ ation record ed. [id number] [facility] [place] [address], [place], [address], 11/26/2022 09:24:56 12/29/1912/28/2022 CT, abdom en + pelvi s, w/ contr ast No observ ation record ed. [email or web address] [facility] [address], [place], [address], 12/29/2022 08:49:27 Result Notes None recorded. Problems Name Problem SNOMED Code Status Onset Date Resolution Date Notes Provider Name and Address Organization Details Recorded Time Pain in throat 120091017 Completed 11/18/2024 AGAPITO Dasilva [address], [place], [address] , [employer] 5 16:25:24 Adjustme nt disorder 16952093 Active extreme Not Available [employer] 3 09:19:07 Abdomina l pain 97203691 Completed 11/18/2024 AGAPITO Dasilva [address], [address], [place], [address] , [employer] 5 16:25:17 Pain of hip region 61702895 Completed 11/18/2024 AGAPITO Dasilva [address], [address], [place], [address] , [employer] 5 16:25:22 Irritabl e bowel syndrome with diarrhea 910762997 Active 2021 Not Available [employer] 3 09:19:08 Mixed anxiety and depressi ve disorder 216613800 Active 2022 AGAPITO Robles [address], [address], [place], [address] , [place] [facility] 3 08:29:19 Problem Notes None recorded. Medical [...] % 98 % 109 /min 97.4 [degF] 25006.3 g 120/72 mm[Hg] Not Available [facility] 3 09:17:10 Date Recorded Body mass index (BMI) Body height Oxygen saturation Oxygen saturation in Arterial blood by Pulse oximetry Heart rate Body temperature Body weight Systolic And Diastolic Provider Name and Address Organization Details Last Updated DateTime 2 20.5 kg/m2 182.88 cm 97.99 % 97.99 % 65.98 /min 97.2 [degF] 03098.4 5 g 105/72 mm[Hg] Not Available [facility] 3 09:17:10 Date Recorded Body height Body mass index (BMI) Body weight Body temperature Heart rate Oxygen saturation Oxygen saturation in Arterial blood by Pulse oximetry Systolic And Diastolic Provider Name and Address Organization Details Last Updated DateTime 3 182.88 cm 19.5 kg/m2 72914.3 g 98.3 [degF] 78 /min 99 % 99 % 120/80 mm[Hg] Louise Rebolledo RN [place] [employer] [facility] 3 08:16:00 Date Recorded Body mass index (BMI) Body height Pain severity - 0-10 verbal numeric rating [Score] - Reported Body weight Provider Name and Address Organization Details Last Updated DateTime 07/17/2021 20.3 kg/m2 182.88 cm 0 65206.86 g Not Available [facility] 11/26/2022 09:17:15 Date Recorded Body mass index (BMI) Body height Oxygen saturation Oxygen saturation in Arterial blood by Pulse oximetry Heart rate Body temperature Body weight Systolic And Diastolic Provider Name and Address Organization Details Last Updated DateTime 2 21.6 kg/m2 182.88 cm 97 % 97 % 99 /min 98.7 [degF] 42158.1 9 g 120/72 mm[Hg] Not Available [facility] 09:17:11 Social History Question Answer Notes LastModified by Organizat ion Details LastModified Time Tobacco Smoking Status Never Smoker Not Available [facility] 11/26/2022 09:13:24 Do You Have An Advance Directive? No [id number] Information not available 11/26/2022 What Is Your Level Of Caffeine Consumption? Moderate [id number] Information not available 11/26/2022 How Much Tobacco Do You Chew? None [id number] Information not available 11/26/2022 In The 14 Days Before Symptom Onset, Have You Had Close Contact With A Laboratory-confirm ed COVID-19 While That Case Was Ill? No [id number] Information not available 11/26/2022 In The 14 Days Before Symptom Onset, Have You Had Close Contact With A Person Who Is Under Investigation For COVID-19 While That Person Was Ill? No [id number] Information not available 11/26/2022 What Type Of Diet Are You Following? REGULAR [id number] Information not available 11/26/2022 Which Illicit Or Recreational Drugs Have You Used? No [id number] Information not available 11/26/2022 Have There Been Any Changes To Your Family Or Social Situation? No [id number] Information not available 11/26/2022 Are There Any Guns Present In Your Home? No [id number] Information not available 11/26/2022 What Is Your Home Situation? Father [id number] Information not available 11/26/2022 Do You Have A Medical Power Of Harness Installer? No [id number] Information not available 11/26/2022 What Is Your Parents' Marital Status? Unmarried [id number] Information not available 11/26/2022 Do You Use Your Seat Belt Or Car Seat Routinely? Yes [id number] Information not available 11/26/2022 Do You Have Smoke And Carbon Monoxide Detectors In Your Home? Yes [id number] 3887 Information not available 11/26/2022 Are You Passively Exposed To Smoke? No [id number] Information not available 11/26/2022 Are There Any Smokers In Your House? Yes [id number] 0550 Information not available 11/26/2022 What Types Of Sporting Activities Do You Participate In? No [id number] 5145 Information not available 11/26/2022 Do You Use Sunscreen Routinely? Yes [id number] Information not available 11/26/2022 Sex: Unknown Functional Status Question Answer Note LastModified by Organizat ion Details LastModified Time What is your level of alcohol consumption? None [id number] Information not available 11/26/2022 Do you or have you ever used smokeless tobacco? 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 Never used electronic cigarettes [id number] Information not available 11/26/2022 What is your exercise level? Moderate [id number] 026 Information not available 11/26/2022 Mental Status Question Answer Note LastModified by Organizat [employer] Details LastModified Time Are you or have you been involved with bullying? No [id number] Information not available 11/26/2022 Family History Relationship Description Onset Age of this Age Resolved Age Notes LastModified by Organization Details LastModified Time Father Hypertensive disorder [id number] Not available 11/26/2022 09:13:40 Medical History No medical history recorded. Immunizations Vaccine Type Date Status Note Provider Nam e and Address Organization Details Recorded Time Influenza, split virus, quadrivalent, preservative 6 completed Not Available [facility] 11/26/2022 09:24:39 meningococcal MCV4P 5 completed Not Available [facility] 11/26/2022 09:24:39 Influenza, live, quadrivalent, intranasal 3 completed Not Available [facility] 11/26/2022 09:24:39 Tdap 3 completed Not Available [facility] 11/26/2022 09:24:39 HPV, quadrivalent 6 completed Not Available [facility] 11/26/2022 09:24:39 HPV, quadrivalent 6 completed Not Available [facility] 11/26/2022 09:24:40 HPV, quadrivalent 5 completed Not Available [facility] 11/26/2022 09:24:40 HPV, quadrivalent 5 completed Not Available [facility] 11/26/2022 09:24:40 Past Encounters Encounter ID Performer Location Encounter Start Date Encounter Closed Date Diagnosis/Indication Diagnosis SNOMED-CT Code Diagnosis ICD10 Code Diagnosis Note [id number] AGAPITO Robles [facility] [address] [address] [place] [address] 01/22/2021 00:00:00 01/22/2021 20:43:58 [id number] DEEPTI Han [facility] [place] [address] [place] [address] 06/05/2021 00:00:00 06/05/2021 16:35:51 [id number] Tanner Elam MD [facility] [place] [address] [place] [address] 06/12/2021 00:00:00 06/12/2021 14:24:02 [id number] Tanner Elam MD [facility] [place] [address] [place] [address] 06/19/2021 00:00:00 06/19/2021 17:08:21 [id number] Tanner Elam MD [facility] [place] [address] [place] [address] 07/03/2021 00:00:00 07/03/2021 17:29:33 [id number] Tanner Elam MD [facility] [place] [address] [place] [address] 07/17/2021 00:00:00 07/17/2021 17:45:02 [id number] DEEPTI Nath [facility] [address] [address] [place] [address] 11/08/2021 00:00:00 11/08/2021 13:08:44 [id number] _ATHN_MIGR ATION_1 _ATHENA_M IGRATION_ DEFAULT_1 _1 , 12/25/2021 00:00:00 12/25/2021 16:11:43 [id number] DEEPTI Nath [facility] [address] [address] [place] [address] 07/21/2022 00:00:00 07/21/2022 16:55:16 [id number] AGAPITO Robles [facility] Primary Care [facility] [address] [facility] [address] [place] [address] 03/04/2023 08:02:11 03/04/2023 08:43:29 Mixed anxiety and depressive disorder 376392868 F41.8 ChronicNot well controlled with prn hydroxyzin [...] Ahn Member ID Guarantor Name 03/04/2023 1 [place] DEPARTMENT [place] Paul Pierson [id number] Paul Pierson 11/14/2024 1 [employer] BETTER HEALTH OF [place] - DOS ON OR AFTER 2020 (MEDICAID REPLACEMENT - HMO) Paul Pierson [id number] Paul Pierson 11/14/2024 [place]ICA[place] DURABLE MEDICAL EQUIPMENT Paul Pierson [id number] Paul Pierson Notes Date Note Type Note Provider Name and Address Organization Details Recorded Time 03/04/2023 text/html 1. Pt in office for problem visit with c/o worsening anxiety/depression sx. States taking hydroxyzine TID for the past 2 weeks hasn't been helping. Denies any SI/HI at this time. AGAPITO Robles [address] [facility], [place], [address], [place] [facility] 03/04/2023 12:23:06
--- OUTSIDE RECORDS SUMMARY | 2025-04-21 11:23 | XMS_ITS | Referral Summary ---
Author Organization [facility] Address [address] [place] [address] Care Team Providers Care Soldering Machine Operator Helper Name Role Phone No, Physician Primary Care Provider [phone] Allergies No known active allergies Medications No [...] CDT Plan of Treatment Not on file Care Teams Soldering Machine Operator Helper Relationship Specialty Start Date End Date No, Physician PCP - General 01/17/25
--- OUTSIDE RECORDS SUMMARY | 2025-04-21 11:23 | XMS_ITS | Clinical Summary ---
Author Organization [facility] Address [address] [place] [address] Care Team Providers Care Cargoman Name Role Phone No, Physician Primary Care Provider [phone] Allergies No known active allergies Medications No [...] Td or Tdap) 06/29/2023 06/29/2013 Influenza Vaccine (#1) 2025 08/13/2016, 2012 HPV Vaccines Completed 05/07/2016, 09/29, 05/10/2015, Additional history exists Pneumococcal vaccine <65 Aged Out No longer eligible based on patient's age to complete this topic Care Teams Cargoman Relationship Specialty Start Date End Date No, Physician PCP - General 01/17/25
[2025-04-21 11:28] VITALS: BP 124/68; PULSE 83; RESP 10; TEMP 36.6; O2SAT 98
[2025-04-21 11:33] VITALS: PULSE 88
--- NOTE | 2025-04-21 11:50 | ECG_ITS ---
Test Date: 2025-04-21 12:23:04 Measurements Intervals [place] Rate: 64 P: 67 DC: 151 QRS: 73 QRSD: 95 T: 46 QT: 393 QTc: 407 Interpretive Statements SINUS RHYTHM Compared to ECG 04/04/2025 20:19:53 No significant changes Electronically Signed On 04-22-2025 18:37:49 CDT by Jorge Valderrama M.D.
--- NOTE | 2025-04-21 11:52 | ED_ITS ---
HPI - SOB/Dyspnea General Chief Complaint: Shortness of Breath/Dyspnea Stated Complaint: shortness of breath, pain with inspiration Time Seen by Provider: 04/21/25 11:23 History of Present Illness HPI Narrative: Patient is a 24-year-old male who presents to the ER with a 2 week history of shortness of breath, sore throat, tender lymph nodes, intermittent chest pain. Patient reports he has been seen at urgent care and an outside ER. He reports urgent care swab him for strep and ran a mono test approximately 2 weeks ago, both which were negative. Patient also reports he went to an outside ER approximately 1 week ago where they swab him for strep again but it was negative. He reports approximately 3 weeks ago he had tenderness in his left upper abdominal quadrant. Patient denies nicotine use but endorses vaping. He also endorses marijuana use but reports he has been trying to 3 weeks, as he has a at home. Patient endorses history of hand surgery but no other medical history relevant to this ER visit. He denies any recent cough, recent fevers, or wheezing. Related Data Allergies Allergy/AdvReac Type Severity Reaction Status Date / Time No Known Allergies Allergy Mild Verified 04/05/25 18:30 Review of Systems 2 Review of Systems: All systems reviewed & are unremarkable except as noted in HPI and below PMFSH Past Medical History Medical History Patient denies significant medical history Surgical History Surgical History No pertinent past surgical history Family History Family History Mother No problems noted. Social History Social History Smoking status: Current every day smoker Tobacco type: e-cigarettes/vaping Alcohol intake: never Substance use: current Substance use type: marijuana Living arrangements: with family Occupation/Education: student Gender identity (if verbalized by the patient): Male Spiritual care concerns: No Exam 2 Narrative: GENERAL: Well appearing, well-nourished, non-toxic, in no acute distress. HEAD: Normocephalic, atraumatic. NECK: Supple. No adenopathy, no masses. RESPIRATORY: Airway patent, respirations nonlabored. Clear to auscultation bilaterally, no rales, rhonchi, wheezing. CARDIOVASCULAR: Regular rate and rhythm without murmurs, rubs, or gallops. Peripheral pulses 2+ and equal bilaterally. ABDOMINAL: Soft, nontender, nondistended, no hepatosplenomegaly. Normoactive BS. MUSCULOSKELETAL: Moves all extremities. Strength/ROM intact without gross deformities. SKIN: Warm, dry, normal color. No rashes. NEURO: A&O X3. Speech clear. Cranial nerves II-XII intact. No ataxic movements. PSYCHIATRIC: Appropriate mood and affect. Normal interaction. Course Vital Signs Vital signs: Vital Signs Temperature 36.6 C 04/21/25 11:28 Pulse Rate 83 04/21/25 11:28 Respiratory Rate 10 L 04/21/25 11:28 Blood Pressure 124/68 04/21/25 11:28 Pulse Oximetry 98 04/21/25 11:28 Oxygen Delivery Room Air 04/21/25 11:28 Temperature 36.6 C 04/21/25 11:28 Pulse Rate 88 04/21/25 14:18 Respiratory Rate 11 L 04/21/25 14:18 Blood Pressure 103/66 04/21/25 14:18 Pulse Oximetry 100 04/21/25 14:18 Oxygen Delivery Room Air 04/21/25 11:28 MDM - SOB/Dyspnea MDM Narrative Medical decision making narrative: Patient is a 24-year-old male who presents to the ER with a 2 week history of shortness of breath, sore throat, tender lymph nodes, intermittent chest pain. Patient reports he has been seen at urgent care and an outside ER. He reports urgent care swab him for strep and ran a mono test approximately 2 weeks ago, both which were negative. Patient also reports he went to an outside ER approximately 1 week ago where they swab him for strep again but it was negative. He reports approximately 3 weeks ago he had tenderness in his left upper abdominal quadrant. Patient denies nicotine use but endorses vaping. He also endorses marijuana use but reports he has been trying to 3 weeks, as he has a at home. Patient endorses history of hand surgery but no other medical history relevant to this ER visit. He denies any recent cough, recent fevers, or wheezing. Labs Ordered: CBC, CMP, UA, UDS, PTT, INR, troponin, magnesium, mono test, D- dimer Imaging Ordered: Chest x-ray Medications Ordered: GI cocktail Results: Patient's CBC was unremarkable. His CMP showed a mildly elevated BUN. Pt's coags are within normal limits. His troponin was negative. Patient's urinalysis was unremarkable. His UDS was positive for cannabinoids. Diagnosis: Atypical chest pain, shortness of breath, GERD Risks: HEART score: low risk HEART Score for Major Cardiac Events from [employer] on 04/21/2025 All calculations should be rechecked by clinician prior to use RESULT SUMMARY: 1 points Low Score (0-3 points) Risk of MACE of 0.9-1.7%. INPUTS: History ?> 0 = Slightly suspicious EKG ?> 0 = Normal Age ?> 0 = <45 Risk factors ?> 1 = 1-2 risk factors Initial troponin ?> 0 = <Normal limit Patient Education/Shared MDM: Results of lab work and imaging shared with patient. Pt's HEART score is negative. He endorses improvement of symptoms following medication administration. Patient strongly advised to maintain hydration status upon discharge and follow-up with a PCP as soon as possible. He will be discharged home with a prescription for Pepcid. Strict return precautions provided. Patient verbalized understanding and is in agreement with plan. Vital signs stable at time of discharge. All questions answered. Differential Diagnosis Differential diagnosis: Likely community acquired pneumonia, asthma with exacerbation and other (Mononucleosis, cannabinoid hyperemesis syndrome, gastric reflux disease) Lab Data Attestation: I reviewed the patient's lab results. 04/21/25 12:02 04/21/25 12:02 Labs: Lab Results 04/21/25 04/21/25 Range/Units 12:02 12:05 WBC 6.2 (4.5-10.0) K/mm3 RBC 4.91 (4.6-6.20) M/mm3 Hgb 14.8 (14.0-18.0) g/dL Hct 42.5 (42.0-52.0) % MCV 86.6 (80-100) fl MCH 30.1 (26-34) pg MCHC 34.8 (32-36) g/dl RDW 12.1 (11.5-14.5) % Plt Count 213 (150-375) k/mm3 MPV 9.6 (7.4-10.4) fl Immature Gran % (Auto) 0.3 (0-0.5) % Neut % (Auto) 58.2 (45.5-73.1) % Lymph % (Auto) 32.8 (18.3-44.2) % [place] % (Auto) 7.1 (2.6-8.5) % Eos % (Auto) 0.8 (0-4.4) % Baso % (Auto) 0.8 (0.2-1.2) % Lymph # (Auto) 2.04 (0.9-3.2) K/mm3 [place] # (Auto) 0.4 (0.1-0.6) K/mm3 Eos # (Auto) 0.1 (0-0.3) K/mm3 Baso # (Auto) 0.1 (0.0-0.1) K/mm3 Abs Immat Gran (auto) 0.02 (0.00-0.031) K/mm3 Absolute Neuts (auto) 3.6 (1.3-6.7) K/mm3 Absolute Nucleated RBC 0.000 (0.0-0.012) K/mm3 Nucleated RBC % 0.0 (0.0-0.2) % PT 14.1 (11.1-14.7) Seconds INR 1.1 APTT 28.8 (22.3-36.8) Seconds D-Dimer < 0.27 (<0.48) ug/mL Sodium 139 (137-145) mmol/L Potassium 4.3 (3.4-5.0) mmol/L Chloride 101 (98-107) mmol/L Carbon Dioxide 29 (22-30) mmol/L Anion Gap 9 (4-12) mmol/L BUN 25 H (9-20) mg/dL Creatinine 0.99 (0.7-1.3) mg/dL Estim Creat Clear Calc 88 ml/min Estimated GFR > 60 (59 - ) Glucose 73 (65-110) mg/dL Calcium 9.8 (8.4-10.2) mg/dL Magnesium 2.2 (1.6-2.3) mg/dL Total Bilirubin 0.8 (0.2-1.3) mg/dL AST 31 (17-59) U/L ALT 16 (6-50) U/L Alkaline Phosphatase 54 (38-126) U/L Troponin I < 0.012 (0.000-0.034) ng/mL Total Protein 7.7 (6.3-8.2) g/dL Albumin 4.9 (3.5-5.1) g/dL Urine Color Yellow (Yellow) Urine Appearance Clear (Clear) Urine pH 6.0 (5.0-9.0) Ur Specific [place] 1.030 (1.001-1.035) Urine Protein Trace (Negative) mg/dL Urine Glucose (UA) Negative (Negative) mg/dL Urine Ketones Trace H (Negative) mg/dL Ur Blood (Man) Negative (Negative) Urine Nitrate Negative (Negative) Urine Bilirubin Negative (Negative) Urine Urobilinogen 1.0 (<2.0) mg/dL Leukocyte Esterase Rfl Negative (Negative) MIHAI/UL Urine RBC 0-2 (0-2) /hpf Urine WBC 0-5 (0-3) /hpf Ur Squamous Epith Cells None seen (Few) /hpf Urine Bacteria None seen /hpf Urine Casts 0-2 Urine Opiates Screen Negative (Negative) Urine Methadone Screen Negative (Negative) Ur Barbiturates Screen Negative (Negative) Ur Phencyclidine Scrn Negative (Negative) Ur Amphetamine Screen Negative (Negative) U Benzodiazepines Scrn Negative (Negative) Urine Cocaine Screen Negative (Negative) U Cannabinoids Screen Positive A (Negative) Monoscreen Negative (Negative) Imaging Data Attestation: I personally reviewed and interpreted this imaging study as follows: Radiologist's impression: Impressions Chest X-Ray 04/21/25 13:37 Impression: 1: ADDENDUM: 04/21/25 1407 Addendum: EXAMINATION: XR chest 2V 04/21/2025 13:15 INDICATION: Chest pain and shortness of breath PROCEDURE: 2 view chest COMPARISON: No prior studies for comparison. FINDINGS: The lungs are clear. The cardiomediastinal silhouette is within normal limits. There are no pleural effusions. There is no pneumothorax suspected. IMPRESSION: 1: NO ACUTE CARDIOPULMONARY DISEASE. Discharge Plan Discharge Clinical Impression: Atypical chest pain, Gastro-esophageal reflux, Shortness of breath Patient Disposition: Home Condition: Stable Instructions: Antibiotic Form, Noncardiac Chest Pain (ED) Additional Instructions: Please return to the ER with any worsening symptoms. Follow-up with primary care provider as soon as possible. Take all medications as prescribed. You may use Tylenol and ibuprofen at home for pain control. Patient Language: Surinamese Prescriptions: New famotidine 40 mg tablet 40 mg PO BID Qty: 60 0RF No Action prednisone 50 mg tablet 50 mg PO DAILY Qty: 7 0RF Follow-up/Referrals: PHYSICIAN,JAVA MOBILE DEVELOPER [Primary Care Provider] - David Thomas MD [Physician] - (primary care provider) Stand Alone Forms: Work/School Release IP Time of Disposition: 14:56
[2025-04-21 12:26] VITALS: BP 114/75; PULSE 75; RESP 16; O2SAT 97
[2025-04-21 12:32] LABS: Hematocrit 42.5 % (42.0-52.0); Hemoglobin 14.8 g/dL (14.0-18.0); Immature Granulocyte Percent A 0.3 % (0-0.5); Lymphocytes Absolute Auto 2.04 K/mm3 (0.9-3.2); Mean Corpuscular HGB Conc 34.8 g/dl (32-36); Mean Corpuscular Hemoglobin 30.1 pg (26-34); Mean Corpuscular Volume 86.6 fl (80-100); Nucleated Red Blood Cells Absolute Auto 0.000 K/mm3 (0.0-0.012); Nucleated Red Blood Cells Perc 0.0 % (0.0-0.2); Platelet Count Result 213 k/mm3 (150-375); Red Blood Count 4.91 M/mm3 (4.6-6.20); White Blood Count 6.2 K/mm3 (4.5-10.0)
[2025-04-21 12:37] LABS: Add Urine Microscopic? YES; Appearance Urine Clear (Clear); Glucose Urine UA Negative (Negative); Leukocyte Esterase Ur Negative LEU/UL (Negative); Nitrate Urine Negative (Negative); Non Pathogenic Casts 0-2; Specific Grav Ur 1.030 (1.001-1.035)
[2025-04-21 12:45] LABS: INR 1.1; Prothrombin Time 14.1 Seconds (11.1-14.7)
[2025-04-21 12:47] LABS: Partial Thromboplastin Time 28.8 Seconds (22.3-36.8)
[2025-04-21 12:51] LABS: Alanine Aminotransferase 16 U/L (6-50); Albumin Level 4.9 g/dL (3.5-5.1); Alkaline Phosphatase 54 U/L (38-126); Anion Gap 9 mmol/L (4-12); Aspartate Amino Transferase 31 U/L (17-59); Bilirubin,Total 0.8 mg/dL (0.2-1.3); Blood Urea Nitrogen 25 mg/dL (9-20); Calcium 9.8 mg/dL (8.4-10.2); Carbon Dioxide 29 mmol/L (22-30); Chloride 101 mmol/L (98-107); Estimated CRCL calculation 88 ml/min; Estimated Glomerular Filt Rate > 60; Glucose 73 mg/dL (65-110); Magnesium 2.2 mg/dL (1.6-2.3); Potassium 4.3 mmol/L (3.4-5.0); Sodium 139 mmol/L (137-145); Total Protein 7.7 g/dL (6.3-8.2)
[2025-04-21 12:53] LABS: Negative Monotest Control Negative (Negative); Positive Monotest Control Positive (Positive)
[2025-04-21 13:03] LABS: Troponin I < 0.012 ng/mL (0.000-0.034)
[2025-04-21 13:03] LABS: Cannabinoid Screen Urine Positive (Negative)
[2025-04-21] MEDS: BELLADONNA ALK/PHENOB ELIX 10 ML, MAG HYDROX/ALUMINUM HYD/SIMETH 30 ML, LIDOCAINE 2% VI... PO (14:16)
[2025-04-21 14:18] VITALS: BP 103/66; PULSE 88; RESP 11; O2SAT 100
[2025-04-21 15:09] VITALS: BP 112/76; PULSE 69; RESP 14; TEMP 36.2; O2SAT 99
== END 2025-04-21 15:10 | disposition home or self-care (01) ==
PROVIDERS: Emergency Provider Registered Nurse
DX: R06.02 Shortness of breath (principal); R07.89 Other chest pain; K21.9 Gastro-esophageal reflux disease without esophagitis; F17.290 Nicotine dependence, other tobacco product, uncomplicated
CPT/HCPCS: 36415; 71046; 80053; 80307; 81001; 83735; 84484; 85025; 85380; 85610; 85730; 86308; 93005; 99284; A9270

== ENCOUNTER 2025-06-19 12:29 | Emergency (ER) | payer SELFPAY ==
[2025-06-19 12:42] VITALS: BP 113/64; PULSE 94; RESP 18; TEMP 37.1; O2SAT 100
--- OUTSIDE RECORDS SUMMARY | 2025-06-19 13:00 | XMS_ITS | Clinical Summary ---
Author Organization [facility] Address [address] [place] [address] Care Team Providers Care Preschool Assistant Name Role Phone No, Physician Primary Care Provider [phone] Allergies No known active allergies Medications No [...] age to complete this topic Care Teams Preschool Assistant Relationship Specialty Start Date End Date No, Physician PCP - General 01/17/25
--- NOTE | 2025-06-19 13:21 | ED_ITS ---
HPI - General Adult General Chief complaint: Back Pain/Injury Stated complaint: Back Tingling Time Seen by Provider: 06/19/25 13:00 Source: patient, RN notes reviewed and old records reviewed Mode of arrival: ambulatory Limitations: no limitations History of Present Illness HPI narrative: 24 year old male presents to express care with complaints of 8-9 day history of strange shooting itch sensation down his back and in his arms. Patient reports that it has awakened him during the night. Patient reports that he looked on the internet and said it could be something with his liver or kidney's instructed patient that we do no labs here that he would have to go to the ED for labs and advanced testing we have standard x-ray only. Patient reports no fevers, no rash noted on back or arms. he states that he has not been in the [place] or had any injury to his back or neck, denies any fevers, chills or sweats is presently in no pain. Patient states that sensation is intermittent.. MD complaint: 8-9 days of shooting itch sensatiion down his back and in arms Onset (ago): day(s) (8-9 days) Location: back, left, right and upper extremity Severity scale (1-10): 8 (reported by patient) Treatments prior to arrival: other (lotion) Related Data Home Medications ?Medication ?Instructions ?Recorded ?Confirmed ?Last Taken ?Type No Home Medications 06/19/25 06/19/25 U nknown History Allergies Allergy/AdvReac Type Severity Reaction Status Date / Time No Known Allergies Allergy Mild Verified 06/19/25 12:48 Review of Systems Review of Systems: CONSTITUTIONAL: Denies fever, chills, or sweats. EYES: Denies visual changes, redness, or discharge. ENT: Denies rhinorrhea, congestion, sore throat, or otalgia. CARDIOVASCULAR: Denies chest pain, palpitations, or edema. RESPIRATORY: Denies cough or dyspnea. GASTROINTESTINAL: Denies abdominal pain, nausea, vomiting, or diarrhea. GENITOURINARY: Denies dysuria or hematuria. SKIN: Denies rash, reports strange tingly itch on back and arms MUSCULOSKELETAL: Denies back pain, joint pain, or myalgia report strange itch tingling type of sensation to back and arms, no injury. NEUROLOGIC: Denies headache, numbness, or weakness. PSYCHIATRIC: Reports history of anxiety or depression. All systems reviewed & are unremarkable except as noted in HPI and below PMFSH Past Medical History Medical History (Updated 06/19/25 @ 20:36 by Kendra Maxwell NP) Fractured hand Anxiety and depression Patient denies significant medical history Surgical History Surgical History No pertinent past surgical history Family History Family History Mother No problems noted. Social History Social History Smoking status: Current every day smoker Tobacco type: e-cigarettes/vaping Additional smoking assessment comments: states using nicotine pouch now Alcohol intake: never Substance use: current Substance use type: marijuana Living arrangements: with family Gender identity (if verbalized by the patient): Male Spiritual care concerns: No Comments At time of signature, agree with nursing past medical, surgical, social and family history. There is no relevant family history pertinent to the presenting complaint Exam Narrative: GENERAL: Well-appearing, well-nourished, and in no acute distress. HEAD: Normocephalic, atraumatic. EYES: PERRLA and EOMI. ENT: Nares clear, no rhinorrhea or epistaxis. Mucous membranes moist.TMs normal throat pink with no leions NECK: Supple. no lymphadenopathy moves well CHEST: Clear to auscultation. No respiratory distress. SAO2 100% on room air HEART: Regular rate and rhythm. No murmur heard. Normal peripheral pulses. ABDOMEN: Soft, nontender, nondistended, normal active bowel sounds. EXTREMITIES: Normal range of motion. No edema. SKIN: Warm, dry, no rash noted on skin of back or arms NEURO: No focal deficits. Alert and oriented x3.reports strange itchy tingling sensation intermittent to back and arms for past 8-9 days, no injury or fevers . Course Course Emergency Course: Patient is aware of diagnosis, understands and agrees to treatment plan.? Anticipatory guidance given.? Patient agrees to follow-up as directed and is aware of reasons to seek care at the emergency department. Portions of this record may have been created with voice recognition software Level of Care: [facility] Visit Vital Signs Vital signs: Vital Signs Temperature 37.1 C 06/19/25 12:42 Pulse Rate 94 06/19/25 12:42 Respiratory Rate 18 06/19/25 12:42 Blood Pressure 113/64 06/19/25 12:42 Pulse Oximetry 100 06/19/25 12:42 Oxygen Delivery Room Air 06/19/25 12:42 Temperature 37.1 C 06/19/25 12:42 Pulse Rate 94 06/19/25 12:42 Respiratory Rate 18 06/19/25 12:42 Blood Pressure 113/64 06/19/25 12:42 Pulse Oximetry 100 06/19/25 12:42 Oxygen Delivery Room Air 06/19/25 12:42 Reviewed Medical Decision Making MDM Narrative Medical decision making narrative: Exam findings and imaging show no acute concerns or changes; patient is non- toxic appearing and is in no distress.? Patient is appropriate for outpatient treatment and follow-up Differential Diagnosis Differential Diagnosis: paraesthesia, pruritic skin disorder, vitamin deficiency,anxiety. Medical Records Medical records reviewed: Yes I reviewed the external patient's medical records. Vital Signs Vital Signs: Vital Signs Temperature 37.1 C 06/19/25 12:42 Pulse Rate 94 06/19/25 12:42 Respiratory Rate 18 06/19/25 12:42 Blood Pressure 113/64 06/19/25 12:42 Pulse Oximetry 100 06/19/25 12:42 Oxygen Delivery Room Air 06/19/25 12:42 Temperature 37.1 C 06/19/25 12:42 Pulse Rate 94 06/19/25 12:42 Respiratory Rate 18 06/19/25 12:42 Blood Pressure 113/64 06/19/25 12:42 Pulse Oximetry 100 06/19/25 12:42 Oxygen Delivery Room Air 06/19/25 12:42 reviewed Critical Care Time Critical Care Time Critical Care Time: No Discharge Plan Discharge Clinical Impression: Unspecified pruritic disorder Patient Disposition: Home Condition: Stable Instructions: Paresthesia (ED), Itchy Skin (ED) Additional Instructions: information about obtaining PCP sheet Patient encouraged to maintain good hygiene no sharing of towels, monitor for any rashes Go ED if concern for any liver or kidney problems so labs can be drawn for evaluation Benadryl orally 25-50 mg every 6 hours as needed, don't drive while taking. If your symptoms persist, change or worsen significantly before you can contact your personal physician then please, without delay, go to the emergency department for further evaluation. Follow-up with PCP in 7-10 days or sooner if needed patient left without paper work upset he couldn't get labs done here Patient Language: Belarusian Prescriptions: No Action No Home Medications Follow-up/Referrals: PHYSICIAN,EXCELSIOR MACHINE FEEDER [Primary Care Provider, Internal Medicine] Time of Disposition: 13:15 Quality Nico Coma Scale Eyes: Open Verbal: Oriented and Alert Motor: Follows Commands Nico Coma Total Score: 15
== END 2025-06-19 13:15 | disposition home or self-care (01) ==
PROVIDERS: Emergency Provider Registered Nurse
DX: L29.9 Pruritus, unspecified (principal); F17.290 Nicotine dependence, other tobacco product, uncomplicated; F12.90 Cannabis use, unspecified, uncomplicated
CPT/HCPCS: 99211; G0463

== ENCOUNTER 2025-06-21 10:55 | Emergency (ER) | payer SELFPAY ==
[2025-06-21 11:10] VITALS: BP 126/61; PULSE 90; RESP 18; TEMP 36.8; O2SAT 99
--- OUTSIDE RECORDS SUMMARY | 2025-06-21 11:50 | XMS_ITS | Clinical Summary ---
Author Organization [facility] Address [address] [place] [address] Care Team Providers Care Try Out Person Name Role Phone No, Physician Primary Care Provider [phone] Allergies No known active allergies Medications No [...] age to complete this topic Care Teams Try Out Person Relationship Specialty Start Date End Date No, Physician PCP - General 01/17/25
[2025-06-21 12:36] LABS: Hematocrit 42.2 % (42.0-52.0); Hemoglobin 14.9 g/dL (14.0-18.0); Immature Granulocyte Percent A 0.2 % (0-0.5); Lymphocytes Absolute Auto 1.80 K/mm3 (0.9-3.2); Mean Corpuscular HGB Conc 35.3 g/dl (32-36); Mean Corpuscular Hemoglobin 30.1 pg (26-34); Mean Corpuscular Volume 85.3 fl (80-100); Nucleated Red Blood Cells Absolute Auto 0.000 K/mm3 (0.0-0.012); Nucleated Red Blood Cells Perc 0.0 % (0.0-0.2); Platelet Count Result 197 k/mm3 (150-375); Red Blood Count 4.95 M/mm3 (4.6-6.20); White Blood Count 6.3 K/mm3 (4.5-10.0)
--- OUTSIDE RECORDS SUMMARY | 2025-06-21 12:44 | XMS_ITS | Clinical Summary ---
Author Organization [facility] Address [address] [place] [address] Care Team Providers Care Mechanical Maintenance Supervisor Name Role Phone No, Physician Primary Care Provider [phone] Allergies No known active allergies Medications No [...] age to complete this topic Care Teams Mechanical Maintenance Supervisor Relationship Specialty Start Date End Date No, Physician PCP - General 01/17/25
[2025-06-21 12:52] LABS: Alanine Aminotransferase 17 U/L (6-50); Albumin Level 4.8 g/dL (3.5-5.1); Alkaline Phosphatase 54 U/L (38-126); Anion Gap 7 mmol/L (4-12); Aspartate Amino Transferase 28 U/L (17-59); Bilirubin,Total 0.8 mg/dL (0.2-1.3); Blood Urea Nitrogen 22 mg/dL (9-20); Calcium 9.4 mg/dL (8.4-10.2); Carbon Dioxide 30 mmol/L (22-30); Chloride 102 mmol/L (98-107); Estimated CRCL calculation 98 ml/min; Estimated Glomerular Filt Rate > 60; Glucose 83 mg/dL (65-110); Potassium 4.3 mmol/L (3.4-5.0); Sodium 139 mmol/L (137-145); Total Protein 7.8 g/dL (6.3-8.2)
--- NOTE | 2025-06-21 13:14 | ED_ITS ---
HPI - General Adult General Chief complaint: Unspecified Stated complaint: skin issues on back Time Seen by Provider: 06/21/25 11:45 History of Present Illness HPI narrative: This is a 24-year-old male with history of anxiety and panic attacks presenting for a pins and needles/itching sensation in his back. Patient says over the last week he has been having a goose bumps sensation between her shoulder brace that then goes down both arms. It last for approximately 15 seconds before resolving on his own. It is woken him from sleep. His says there may be a discoloration to his skin when this occurs but it quickly disappears and he has no zaragoza at this time. Patient is in the history of allergic reactions and does not have any throat swelling wheezing or GI symptoms. He read on the Internet this could be related to his kidney or liver function is requesting lab work. Related Data Home Medications ?Medication ?Instructions ?Recorded ?Confirmed ?Last Taken ?Type No Home Medications 06/19/25 06/19/25 U nknown History Allergies Allergy/AdvReac Type Severity Reaction Status Date / Time No Known Allergies Allergy Mild Verified 06/19/25 12:48 [facility] Past Medical History Medical History (Updated 06/21/25 @ 13:21 by Balaji Jackson MD) Fractured hand Anxiety and depression Patient denies significant medical history Surgical History Surgical History No pertinent past surgical history Family History Family History Mother No problems noted. Social History Social History Smoking status: Current every day smoker Tobacco type: e-cigarettes/vaping Additional smoking assessment comments: states using nicotine pouch now Alcohol intake: never Substance use: current Substance use type: marijuana Living arrangements: with family Gender identity (if verbalized by the patient): Male Spiritual care concerns: No Exam 2 Narrative: APPEARANCE: No apparent distress. Head: atraumatic. EYES: EOMI, NOSE: Atraumatic NECK: Trachea midline RESPIRATORY: No increased rate of breathing clear to auscultation CARDIOVASCULAR: RRR, no peripheral edema ABDOMINAL: Non-distended soft nontender MUSCULOSKELETAl: No tenderness over the affected area in the back. NEURO: Alert. Cranial nerves 2-12 grossly intact. Sensation light touch, motor function cerebellar function intact for 4 extremities. Gait exam was normal. SKIN:: Focal exam of the back revealed no rashes discoloration or erythema or tenderness PSYCHIATRIC: Normal affect Course Vital Signs Vital signs: Vital Signs Temperature 98.2 F 06/21/25 11:10 Pulse Rate 90 06/21/25 11:10 Respiratory Rate 18 06/21/25 11:10 Blood Pressure 126/61 06/21/25 11:10 Pulse Oximetry 99 06/21/25 11:10 Temperature 98.2 F 06/21/25 11:10 Pulse Rate 90 06/21/25 11:10 Respiratory Rate 18 06/21/25 11:10 Blood Pressure 126/61 06/21/25 11:10 Pulse Oximetry 06/21/25 11:10 Medical Decision Making MDM Narrative Medical decision making narrative: -Course: 24-year-old male presenting with a cues from sensation to a shoulder brace spreading down his arms. He is currently asymptomatic. Physical exam is unremarkable. Unclear etiology of his symptoms but no life or limb threats on my evaluation. Patient requested lab work to assess his kidney and liver function which was normal. He will be discharged with primary care follow-up and return precautions. -DDX includes but is not limited to: Anxiety, panic attack, paresthesias, allergic reaction Vital Signs Vital Signs: Vital Signs Temperature 98.2 F 06/21/25 11:10 Pulse Rate 90 06/21/25 11:10 Respiratory Rate 18 06/21/25 11:10 Blood Pressure 126/61 06/21/25 11:10 Pulse Oximetry 06/21/25 11:10 Temperature 98.2 F 06/21/25 11:10 Pulse Rate 90 06/21/25 11:10 Respiratory Rate 18 06/21/25 11:10 Blood Pressure 126/61 06/21/25 11:10 Pulse Oximetry 06/21/25 11:10 Lab Data 06/21/25 12:25 06/21/25 12:25 Labs: Lab Results 06/21/25 Range/Units 12:25 WBC 6.3 (4.5-10.0) K/mm3 RBC 4.95 (4.6-6.20) M/mm3 Hgb 14.9 (14.0-18.0) g/dL Hct 42.2 (42.0-52.0) % MCV 85.3 (80-100) fl MCH 30.1 (26-34) pg MCHC 35.3 (32-36) g/dl RDW 12.6 (11.5-14.5) % Plt Count 197 (150-375) k/mm3 MPV 9.3 (7.4-10.4) fl Immature Gran % (Auto) 0.2 (0-0.5) % Neut % (Auto) 60.1 (45.5-73.1) % Lymph % (Auto) 28.8 (18.3-44.2) % [place] % (Auto) 8.6 H (2.6-8.5) % Eos % (Auto) 1.3 (0-4.4) % Baso % (Auto) 1.0 (0.2-1.2) % Lymph # (Auto) 1.80 (0.9-3.2) K/mm3 [place] # (Auto) 0.5 (0.1-0.6) K/mm3 Eos # (Auto) 0.1 (0-0.3) K/mm3 Baso # (Auto) 0.1 (0.0-0.1) K/mm3 Abs Immat Gran (auto) 0.01 (0.00-0.031) K/mm3 Absolute Neuts (auto) 3.8 (1.3-6.7) K/mm3 Absolute Nucleated RBC 0.000 (0.0-0.012) K/mm3 Nucleated RBC % 0.0 (0.0-0.2) % Sodium 139 (137-145) mmol/L Potassium 4.3 (3.4-5.0) mmol/L Chloride 102 (98-107) mmol/L Carbon Dioxide 30 (22-30) mmol/L Anion Gap 7 (4-12) mmol/L BUN 22 H (9-20) mg/dL Creatinine 0.96 (0.7-1.3) mg/dL Estim Creat Clear Calc 98 ml/min Estimated GFR > 60 (59 - ) Glucose 83 (65-110) mg/dL Calcium 9.4 (8.4-10.2) mg/dL Total Bilirubin 0.8 (0.2-1.3) mg/dL AST 28 (17-59) U/L ALT 17 (6-50) U/L Alkaline Phosphatase 54 (38-126) U/L Total Protein 7.8 (6.3-8.2) g/dL Albumin 4.8 (3.5-5.1) g/dL Discharge Plan Discharge Clinical Impression: Itching Patient Disposition: Home Condition: Stable Instructions: Antibiotic Form, Itchy Skin (ED) Additional Instructions: Please follow-up with primary care physician listed below. Your kidney function and liver function or normal. You develop any new symptoms which may help guide a workup you can return to the ED at any time. Patient Language: Yakut Prescriptions: No Action No Home Medications Follow-up/Referrals: PHYSICIAN,LABORER FILTER PLANT [Primary Care Provider, Internal Medicine] David Thomas MD [Physician, Family Practice] - 1 Week Referral Note: Establish pcp
[2025-06-21 13:34] VITALS: BP 122/74; PULSE 99; RESP 16; O2SAT 100
== END 2025-06-21 13:35 | disposition home or self-care (01) ==
PROVIDERS: Emergency Provider Emergency Medicine
DX: L29.9 Pruritus, unspecified (principal); F17.290 Nicotine dependence, other tobacco product, uncomplicated; F12.90 Cannabis use, unspecified, uncomplicated
CPT/HCPCS: 36415; 80053; 85025; 99283

== ENCOUNTER 2025-08-18 10:23 | Emergency (ER) | payer SELFPAY ==
--- NOTE | ~2025-08-18 | XR_ITS ---
EXAMINATION: XR chest 2V DATE: 08/18/2025 11:53 INDICATION: Chest pain TECHNIQUE: Frontal and lateral views of the chest were obtained. COMPARISON: April 21, 2025 FINDINGS: The frontal view appear stable; on the lateral projection, there is mild increased consolidative or atelectatic appearing changes overlying the heart shadow which may correspond to the lingular region or medial segment right middle lobe. No definite consolidation. No pneumothorax or subphrenic free air seen. The bones appear intact. IMPRESSION: Questionable area overlying the heart on the lateral view of possible subsegmental atelectasis or early consolidation. Correlate with follow- up chest x-ray or chest CT after treatment. Reviewed, dictated and finalized at location A. CLEANING SUPERVISOR IMPRESSION: Questionable area overlying the heart on the lateral view of possib le subsegmental atelectasis or early consolidation. Correlate with follow-up ch est x-ray or chest CT after treatment.
--- NOTE | 2025-08-18 10:25 | ECG_ITS ---
Test Date: 2025-08-18 10:30:36 Measurements Intervals [place] Rate: 74 P: 77 WA: 136 QRS: 81 QRSD: 100 T: 53 QT: 371 QTc: 412 Interpretive Statements SINUS RHYTHM WITH SINUS ARRHYTHMIA POSSIBLE LEFT ATRIAL ENLARGEMENT [-0.1mV P-WAVE IN V1/V2] POSSIBLE RIGHT VENTRICULAR CONDUCTION DELAY [RSR (QR) IN V1/V2] BORDERLINE ECG Compared to ECG 04/21/2025 12:23:04 RSR PRIME PATTERN NOTED IN V1 AND V2, NO OTHER DIFFERENCE Electronically Signed On 08-18-2025 11:29:26 AUTOMOTIVE TECHNICIAN by Leobardo Calderon M.D.
--- OUTSIDE RECORDS SUMMARY | 2025-08-18 10:25 | XMS_ITS | Clinical Summary ---
Author Organization [facility] Address [address] [place] [address] Care Team Providers Care Fish Header Name Role Phone No, Physician Primary Care Provider [phone] Allergies No known active allergies Medications No [...] age to complete this topic Care Teams Fish Header Relationship Specialty Start Date End Date No, Physician PCP - General 01/17/25
[2025-08-18 11:00] VITALS: BP 99/61; PULSE 65; RESP 20; TEMP 36.6; O2SAT 98
[2025-08-18 11:08] LABS: Hematocrit 43.6 % (42.0-52.0); Hemoglobin 15.1 g/dL (14.0-18.0); Immature Granulocyte Percent A 0.4 % (0-0.5); Lymphocytes Absolute Auto 1.91 K/mm3 (0.9-3.2); Mean Corpuscular HGB Conc 34.6 g/dl (32-36); Mean Corpuscular Hemoglobin 29.7 pg (26-34); Mean Corpuscular Volume 85.7 fl (80-100); Nucleated Red Blood Cells Absolute Auto 0.000 K/mm3 (0.0-0.012); Nucleated Red Blood Cells Perc 0.0 % (0.0-0.2); Platelet Count Result 209 k/mm3 (150-375); Red Blood Count 5.09 M/mm3 (4.6-6.20); White Blood Count 5.3 K/mm3 (4.5-10.0)
[2025-08-18 11:22] LABS: Alanine Aminotransferase 19 U/L (6-50); Albumin Level 4.8 g/dL (3.5-5.1); Alkaline Phosphatase 66 U/L (38-126); Anion Gap 8 mmol/L (4-12); Aspartate Amino Transferase 26 U/L (17-59); Bilirubin,Total 0.8 mg/dL (0.2-1.3); Blood Urea Nitrogen 20 mg/dL (9-20); Calcium 9.6 mg/dL (8.4-10.2); Carbon Dioxide 27 mmol/L (22-30); Chloride 105 mmol/L (98-107); Estimated CRCL calculation 95 ml/min; Estimated Glomerular Filt Rate > 60; Glucose 86 mg/dL (65-110); Lipase 49 U/L (23-300); Potassium 4.2 mmol/L (3.4-5.0); Sodium 140 mmol/L (137-145); Total Protein 7.8 g/dL (6.3-8.2)
[2025-08-18 11:25] LABS: INR 1.1; Partial Thromboplastin Time 29.0 Seconds (22.3-36.8); Prothrombin Time 13.9 Seconds (11.1-14.7)
[2025-08-18 11:39] LABS: Troponin I < 0.012 ng/mL (0.000-0.034)
--- NOTE | 2025-08-18 13:44 | ED_ITS ---
HPI - Chest Pain General Chief Complaint: Chest Pain Stated Complaint: R. sided CP Time Seen by Provider: 08/18/25 13:37 Source: patient Mode of arrival: ambulatory Limitations: no limitations History of Present Illness HPI narrative: 24 years old white male came to the ED with right chest pain, sharp stabbing wake him up from sleep this morning, worse with certain movement and deep breathing. Pain working construction business. Reports a lot of physical activity and bending and twisting yesterday at work. Patient denies shortness of breath, fever, chills, nausea, vomiting. Related Data Allergies Allergy/AdvReac Type Severity Reaction Status Date / Time No Known Allergies Allergy Mild Verified 08/18/25 11:00 Review of Systems 2 Review of Systems: All systems reviewed & are unremarkable except as noted in HPI and below PMFSH Past Medical History Medical History Fractured hand Anxiety and depression Patient denies significant medical history Surgical History Surgical History No pertinent past surgical history Family History Family History Mother No problems noted. Social History Social History Smoking status: Current every day smoker Tobacco type: e-cigarettes/vaping Additional smoking assessment comments: states using nicotine pouch now Alcohol intake: never Substance use: current Substance use type: marijuana Living arrangements: with family Gender identity (if verbalized by the patient): Male Spiritual care concerns: No Exam 2 Narrative: General appearance: Well-developed, well-nourished Skin: Normal color Head: Normocephalic, nontraumatic Eyes: Clear conjunctiva ENT: Oropharynx normal, ears normal, nose normal Neck: Supple, nontender Chest and respiratory: Airway patent, no respiratory distress, no accessory muscle use, diffuse tenderness right chest with palpation, no bruises or swelling or rash Heart: Regular rate/rhythm Abdomen: Soft, nontender, no organomegaly, quiet bowel sounds Vascular: Normal peripheral pulses, normal capillary refill. Musculoskeletal: Normal range of motion, nontender back Neurologic: Alert and oriented ?3, MINING SUPPORT WORKER is normal as tested, no gross motor deficit Course Vital Signs Vital signs: Vital Signs Temperature 36.6 C 08/18/25 11:00 Pulse Rate 65 08/18/25 11:00 Respiratory Rate 20 08/18/25 11:00 Blood Pressure 99/61 L 08/18/25 11:00 Pulse Oximetry 98 08/18/25 11:00 Oxygen Delivery Room Air 08/18/25 11:00 Temperature 36.6 C 08/18/25 11:00 Pulse Rate 88 08/18/25 14:07 Respiratory Rate 16 08/18/25 14:07 Blood Pressure 128/78 08/18/25 14:07 Pulse Oximetry 99 08/18/25 14:07 Oxygen Delivery Room Air 08/18/25 14:04 MDM - Chest Pain MDM Narrative Medical decision making narrative: 24 years old, work in construction business, too much work yesterday, woke up this morning with pain at the right chest, sharp stabbing pain worse with deep breathing and certain movement. Vital signs are stable Physical examination: Diffuse tenderness right chest with light palpation Differential diagnosis chest wall pain chest wall sprain/strain, less likely pneumonia Blood workup today includes CBC, CMP am the troponin showed no significant abnormality Chest x-ray showed atelectasis versus infection. Patient have no coughing, no fever, WBC within normal limit, the possibility of pneumonia is extremely less likely. Patient will be advised to repeat chest x-ray in 2 weeks. EKG showed normal sinus rhythm at 74 beats per minute, left atrial enlargement, right ventricular conduction delay, compared to EKG on April 21 RSR prime pattern noted in V1 and V2 no other difference this Diagnosis chest wall pain, muscular strain/sprain Discharged on naproxen, cyclobenzaprine and Z-Shreyas for possible pneumonia The pt was discharged to home.the pt,s condition upon discharge was fair,education was provided to the pt in reference to the final impression,discharge study results,treatment,prognosis and need for follow up . Differential Diagnosis Differential diagnosis: Likely other (As above) Lab Data 08/18/25 10:37 08/18/25 10:37 Labs: Lab Results 08/18/25 Range/Units 10:37 WBC 5.3 (4.5-10.0) K/mm3 RBC 5.09 (4.6-6.20) M/mm3 Hgb 15.1 (14.0-18.0) g/dL Hct 43.6 (42.0-52.0) % MCV 85.7 (80-100) fl MCH 29.7 (26-34) pg MCHC 34.6 (32-36) g/dl RDW 12.5 (11.5-14.5) % Plt Count 209 (150-375) k/mm3 MPV 9.4 (7.4-10.4) fl Immature Gran % (Auto) 0.4 (0-0.5) % Neut % (Auto) 51.9 (45.5-73.1) % Lymph % (Auto) 36.2 (18.3-44.2) % Taylor % (Auto) 9.3 H (2.6-8.5) % Eos % (Auto) 1.3 (0-4.4) % Baso % (Auto) 0.9 (0.2-1.2) % Lymph # (Auto) 1.91 (0.9-3.2) K/mm3 Taylor # (Auto) 0.5 (0.1-0.6) K/mm3 Eos # (Auto) 0.1 (0-0.3) K/mm3 Baso # (Auto) 0.1 (0.0-0.1) K/mm3 Abs Immat Gran (auto) 0.02 (0.00-0.031) K/mm3 Absolute Neuts (auto) 2.7 (1.3-6.7) K/mm3 Absolute Nucleated RBC 0.000 (0.0-0.012) K/mm3 Nucleated RBC % 0.0 (0.0-0.2) % PT 13.9 (11.1-14.7) Seconds INR 1.1 APTT 29.0 (22.3-36.8) Seconds Sodium 140 (137-145) mmol/L Potassium 4.2 (3.4-5.0) mmol/L Chloride 105 (98-107) mmol/L Carbon Dioxide 27 (22-30) mmol/L Anion Gap 8 (4-12) mmol/L BUN 20 (9-20) mg/dL Creatinine 1.00 (0.7-1.3) mg/dL Estim Creat Clear Calc 95 ml/min Estimated GFR > 60 (59 - ) Glucose 86 (65-110) mg/dL Calcium 9.6 (8.4-10.2) mg/dL Total Bilirubin 0.8 (0.2-1.3) mg/dL AST 26 (17-59) U/L ALT 19 (6-50) U/L Alkaline Phosphatase 66 (38-126) U/L Troponin I < 0.012 (0.000-0.034) ng/mL Total Protein 7.8 (6.3-8.2) g/dL Albumin 4.8 (3.5-5.1) g/dL Lipase 49 (23-300) U/L Imaging Data Radiologist's impression: Impressions Chest X-Ray 08/18/25 12:10 IMPRESSION: Questionable area overlying the heart on the lateral view of possible subsegmental atelectasis or early consolidation. Correlate with follow- up chest x-ray or chest CT after treatment. ECG Data EKG #1: Attestation: I personally reviewed and interpreted this ECG as follows: ECG completion date: 08/18/25 Interpretation: Normal sinus rhythm 74 beats minute, left atrial enlargement possible right ventricular conduction delay, borderline EKG, compared to EKG April 21 RSR prime pattern noted in V1 and V2 no other difference Critical Care Time Critical Care Time Critical Care Time: No Discharge Plan Discharge Clinical Impression: Acute chest wall pain, Pneumonia Patient Disposition: Home Condition: Stable Instructions: Antibiotic Form, Pneumonia (ED), Chest Wall Pain (ED) Additional Instructions: Return if symptoms are worsening , call your family physician for appointment, take Tylenol as as needed for aches and pain, continue home medications. Contact your family physician to repeat chest x-ray in 1-2 weeks Patient Language: Telugu Prescriptions: New azithromycin [Zithromax Z-Shreyas] 250 mg tablet 250 mg PO DAILY PRN (Reason: pneumonia) 5 Days Qty: 6 0RF cyclobenzaprine 10 mg tablet 10 mg PO TID PRN (Reason: muscle spasm) Qty: 20 0RF naproxen [Naprosyn] 500 mg tablet 500 mg PO BID PRN (Reason: pain) Qty: 14 0RF Follow-up/Referrals: PHYSICIAN,CREDENTIALING COORDINATOR [Primary Care Provider, Internal Medicine] David Thomas MD [Physician, Family Practice] - 08/23/25 Stand Alone Forms: Work/School Release IP
--- OUTSIDE RECORDS SUMMARY | 2025-08-18 14:00 | XMS_ITS | Clinical Summary ---
Author Organization [facility] Address [address] [place] [address] Care Team Providers Care Education And Training Coordinator Name Role Phone No, Physician Primary Care Provider [phone] Allergies No known active allergies Medications No [...] age to complete this topic Care Teams Education And Training Coordinator Relationship Specialty Start Date End Date No, Physician PCP - General 01/17/25
[2025-08-18 14:04] VITALS: O2SAT 99
[2025-08-18 14:07] VITALS: BP 128/78; PULSE 88; RESP 16; O2SAT 99
[2025-08-18] MEDS: ACETAMINOPHEN 325 MG TABLET 650 MG PO (14:11)
[2025-08-18] MEDS: IBUPROFEN 400 MG TABLET 800 MG PO (14:12)
== END 2025-08-18 14:47 | disposition home or self-care (01) ==
PROVIDERS: Emergency Medicine; Emergency Provider Emergency Medicine
DX: J18.9 Pneumonia, unspecified organism (principal); F17.290 Nicotine dependence, other tobacco product, uncomplicated; R07.89 Other chest pain
CPT/HCPCS: 36415; 71046; 80053; 83690; 84484; 85025; 85610; 85730; 93005; 99284; A9270

== ENCOUNTER 2025-08-20 19:43 | Emergency (ER) | payer BC, SELFPAY ==
[2025-08-20 19:48] VITALS: BP 128/79; PULSE 105; RESP 16; TEMP 36.9; O2SAT 100
--- NOTE | 2025-08-20 20:47 | ED.SOB ---
HPI - SOB/Dyspnea General Chief Complaint: Shortness of Breath/Dyspnea Stated Complaint: difficulty breathing, has pna Time Seen by Provider: 08/20/25 19:53 Source: patient and old records reviewed Mode of arrival: ambulatory Limitations: no limitations History of Present Illness HPI Narrative: Patient is a 24 y/o male who presents to the ED with c/o CP/SOB. Patient reports he was seen in the ED here on 08/18 and diagnosed with pneumonia/chest wall pain. Prescribed azithromycin. Patient is still taking this. Reports worsening pain throughout bilateral chest wall. Reports intermittent episodes of shortness of breath. Reports occasional lightheadedness. Does not feel he is improving with the antibiotics. Denies significant cough or fevers. Denies abdominal pain, sick contacts. Related Data Allergies Allergy/AdvReac Type Severity Reaction Status Date / Time No Known Allergies Allergy Mild Verified 08/20/25 19:52 Review of Systems Review of Systems: All systems reviewed & are unremarkable except as noted in HPI. All systems reviewed & are unremarkable except as noted in HPI and below PMFSH Past Medical History Medical History Fractured hand Anxiety and depression Patient denies significant medical history Surgical History Surgical History No pertinent past surgical history Family History Family History Mother No problems noted. Social History Social History Smoking status: Current every day smoker Tobacco type: e-cigarettes/vaping Additional smoking assessment comments: states using nicotine pouch now Alcohol intake: never Substance use: current Substance use type: marijuana Living arrangements: with family Gender identity (if verbalized by the patient): Male Spiritual care concerns: No Exam Narrative: GENERAL: Well appearing, thin, non-toxic, in no acute distress. HEAD: Normocephalic, atraumatic. RESPIRATORY: Airway patent, respirations nonlabored. Clear to auscultation bilaterally, no rales, rhonchi, wheezing. No focal lung sounds CARDIOVASCULAR: Regular rate and rhythm without murmurs, rubs, or gallops. ABDOMINAL: Soft, nontender, nondistended. Normoactive BS. MUSCULOSKELETAL: Moves all extremities. No gross deformities. No significant reproducible chest wall tenderness to palpation. No peripheral edema. SKIN: Warm, dry, normal color. NEURO: A&O X3. Speech clear. Cranial nerves II-XII grossly intact. Steady gait. No ataxic movements. PSYCHIATRIC: Appropriate mood and affect. Normal interaction. Course Vital Signs Vital signs: Vital Signs Temperature 98.5 F 08/20/25 19:48 Pulse Rate 105 H 08/20/25 19:48 Respiratory Rate 16 08/20/25 19:48 Blood Pressure 128/79 08/20/25 19:48 Pulse Oximetry 100 08/20/25 19:48 Oxygen Delivery Room Air 08/20/25 19:48 Temperature 98.5 F 08/20/25 19:48 Pulse Rate 105 H 08/20/25 19:48 Respiratory Rate 16 08/20/25 19:48 Blood Pressure 128/79 08/20/25 19:48 Pulse Oximetry 100 08/20/25 19:48 Oxygen Delivery Room Air 08/20/25 19:48 MDM - SOB/Dyspnea MDM Narrative Medical decision making narrative: Patient presented to ED with worsening chest pain, shortness of breath, recent diagnosis of pneumonia. Patient mildly tachycardic upon arrival, in no acute distress. Oxygen stable on room air. Exam fairly unremarkable Laboratory studies were ordered in addition to troponin, EKG, CTA of chest. As ED nurse was attempting to place IV to draw labs and prepare for CT scan, patient reported that he needed to leave the facility and wanted to sign out against medical advice. He states he had other places to be. AMA paperwork was signed due to incomplete evaluation. Patient advised he can return at any time to resume evaluation. Ambulatory with a steady gait in no acute distress out of the facility. Medical Records Attestation: I reviewed the patient's medical records. Lab Data Attestation: I reviewed the patient's lab results. Discharge Plan Discharge Clinical Impression: Anterior chest wall pain Patient Disposition: Left Against Medical Advice Condition: Guarded Prognosis Patient Language: Dutch Prescriptions: No Action azithromycin [Zithromax Z-Shreyas] 250 mg tablet 250 mg PO DAILY PRN (Reason: pneumonia) 5 Days Qty: 6 0RF cyclobenzaprine 10 mg tablet 10 mg PO TID PRN (Reason: muscle spasm) Qty: 20 0RF naproxen [Naprosyn] 500 mg tablet 500 mg PO BID PRN (Reason: pain) Qty: 14 0RF Follow-up/Referrals: PHYSICIAN,ORACLE IDENTITY MANAGEMENT CONSULTANT [Primary Care Provider, Internal Medicine]
[2025-08-20 22:01] VITALS: BP 111/77; O2SAT 99
== END 2025-08-20 22:03 | disposition left against medical advice (07) ==
LOC: ANHED 20:15
PROVIDERS: Emergency Provider Physician Assistant
DX: R07.89 Other chest pain (principal); J18.9 Pneumonia, unspecified organism; F17.290 Nicotine dependence, other tobacco product, uncomplicated
CPT/HCPCS: 99281

== ENCOUNTER 2025-08-29 12:38 | Emergency (ER) | payer SELFPAY ==
--- NOTE | ~2025-08-29 | XR_ITS ---
EXAMINATION: XR chest 2V 08/29/2025 12:58 INDICATION: Pneumonia PROCEDURE: 2 view chest COMPARISON: 08/18/2025 FINDINGS: The lungs are clear. The cardiomediastinal silhouette is within normal limits. There are no pleural effusions. There is no pneumothorax suspected. IMPRESSION: 1: NO ACUTE CARDIOPULMONARY DISEASE. Reviewed, dictated and finalized at location I. CTOR TALENT
--- NOTE | 2025-08-29 12:39 | ED_ITS ---
HPI - URI/Sore Throat General Chief Complaint: Upper Respiratory Infection Stated Complaint: URI Time Seen by Provider: 08/29/25 12:39 Source: patient Mode of arrival: ambulatory Limitations: no limitations History of Present Illness HPI Narrative: patient is a 24-year-old male who presents with shortness of breath on exertion. Patient was diagnosed with pneumonia 08/18 after going to the emergency department for sharp stabbing chest pain that started that morning. Patient will back to the emergency department 2 days later because symptoms were not improving and left AMA. Patient finish course of azithromycin. Patient is here today for follow-up x-ray and to be cleared for work. Patient denies any cough, congestion, fever, chills, nausea, vomiting, diarrhea. Related Data Home Medications ?Medication ?Instructions ?Recorded ?Confirmed ?Last Taken ?Type No Home Medications 08/29/25 08/29/25 U nknown History Allergies Allergy/AdvReac Type Severity Reaction Status Date / Time No Known Allergies Allergy Mild Verified 08/29/25 12:43 Review of Systems Review of Systems: All systems reviewed & are unremarkable except as noted in HPI and below Constitutional: Constitutional: Denies chills, Denies fatigue, Denies fever(s), Denies headache(s), Denies malaise and Denies weakness Eyes: Eyes: Denies blurry vision, Denies itchy eyes and Denies loss of vision ENT: Denies otalgia, Denies headache(s), Denies nasal congestion, Denies sinus pain and Denies sore throat Cardiovascular: Cardiovascular: Denies chest pain, Denies irregular heart rhythm, Denies dyspnea and Reports dyspnea on exertion Respiratory: Respiratory: Denies cough and Denies dyspnea Gastrointestinal: Gastrointestinal: Denies abdominal pain, Denies diarrhea, Denies nausea and Denies vomiting Musculoskeletal: Musculoskeletal: Denies back pain, Denies myalgias and Denies arthralgias Integumentary/Breasts: Skin/Breast: Denies pruritus and Denies rash Neurologic: Denies headache(s), Denies loss of vision and Denies weakness Psychiatric: Psychiatric: Reports no additional psychiatric complaints Endocrine: Endocrine: Denies fatigue Allergic/Immunologic: Allergic/Immunologic: Denies itchy eyes PMFSH Past Medical History Medical History Fractured hand Anxiety and depression Patient denies significant medical history Surgical History Surgical History No pertinent past surgical history Family History Family History Mother No problems noted. Social History Social History Smoking status: Current every day smoker Tobacco type: e-cigarettes/vaping Additional smoking assessment comments: states using nicotine pouch now Alcohol intake: never Substance use: current Substance use type: marijuana Living arrangements: with family Gender identity (if verbalized by the patient): Male Spiritual care concerns: No Comments At time of signature, agree with nursing past medical, surgical, social and family history. There is no relevant family history pertinent to the presenting complaint. Exam Const: General: cooperative, healthy appearing, comfortable, no acute distress and well nourished Nutritional Appearance: well nourished Orientation/consciousness: patient oriented x3 Limitations: no limitations HENMT: Head: normal to inspection, normocephalic and atraumatic Ears: hearing grossly normal bilaterally, external ears normal, TM's normal bilaterally, EAC's normal and no periauricular adenopathy Face/Nose/Sinus: Normal external nose present, Abnormal mucous membranes and turbinates present erythematous bilateral and diffuse, normal facial exam, sinuses nontender and face symmetric Face and sinus: normal facial exam, sinuses nontender and face symmetric Mouth: Yes Normal oral and palatal mucosa present, Yes lip normal, Yes tongue normal, Yes Normal salivary glands and ducts present, Yes oropharynx normal and Yes moist mucous membranes Teeth and gingiva: dentition normal Throat: posterior oropharynx normal, tonsils normal and uvula midline Eyes: General: appearance normal, both eyes and all related structures Alignment and Position: alignment normal and position normal Periorbital: periorbital findings normal Eyelids: eyelids normal Pupils: Equal, round and reactive pupils present Neck: Neck: normal visual inspection, full ROM, no lymphadenopathy and supple Chest: Chest palpation & inspection: normal inspection of the chest and normal palpation of entire chest wall Resp: Effort & Inspection: normal respiratory effort and able to speak in complete sentences Auscultation: clear to auscultation bilaterally, no crackles, no rales, no rhonchi and no wheezes Cardio: Rate: tachycardic Rhythm: regular rhythm Heart sounds: S1 normal heart sound present and S2 normal heart sound present GI: Inspection: normal to inspection Skin: General skin exam: normal color and no rashes or lesions noted Neuro: General: patient oriented x3 and moves all extremities Cranial nerves: Yes Equal, round and reactive pupils present Speech: normal speech Gait exam (Neuro): Normal gait present Extrem: General: normal to inspection, full ROM and no edema Psych: Appearance: grossly normal and well kempt Mental Status: mental st atus grossly normal Speech and movement: Normal speech and movement present Affect: normal affect Attitude: cooperative Thought process: Normal thought process present Course Course Emergency Course: Patient is aware of diagnosis, understands and agrees to treatment plan. Anticipatory guidance given. Patient agrees to follow-up as directed and is aware of reasons to seek care at the emergency department. Portions of this record may have been created with voice recognition software Level of Care: Express Care Visit Vital Signs Vital signs: Vital Signs Temperature 36.8 C 08/29/25 12:48 Pulse Rate 115 H 08/29/25 12:48 Respiratory Rate 20 08/29/25 12:48 Blood Pressure 136/78 08/29/25 12:48 Pulse Oximetry 99 08/29/25 12:48 Oxygen Delivery Room Air 08/29/25 12:48 Temperature 36.8 C 08/29/25 12:48 Pulse Rate 115 H 08/29/25 12:48 Respiratory Rate 20 08/29/25 12:48 Blood Pressure 136/78 08/29/25 12:48 Pulse Oximetry 99 08/29/25 12:48 Oxygen Delivery Room Air 08/29/25 12:48 [facility] MDM Narrative Medical decision making narrative: Pt well hydrated appearing, in no respiratory distress, hemodynamically stable. Recommend supportive care. The patient is stable at time of discharge the clinical impression was discussed and the patient was given the opportunity to ask questions, which were addressed as completely as possible given the information available at present. Anticipatory guidance and return to care precautions were discussed and the importance of primary care follow-up was st ressed and encouraged. The patient voiced understanding of the plan, indications to return, and the need for follow-up. Exam findings show no acute concerns or changes Patient is appropriate for outpatient treatment and follow-up. Differential Diagnosis Differential Diagnosis: Differential diagnosis considered: Alberto virus, strep pharyngitis, allergic rhinitis, upper respiratory tract infection, sinusitis, rhinosinusitis, nasopharyngitis. viral pharyngitis, otitis media, otitis externa, otitis effusion, foreign body, cerumen impaction, viral syndrome, and influenza. Medical Records I have reviewed the following patient records and this information was taken into consideration when formulating the assessment and plan.: previous ER visits and previous clinic visits Imaging Data Radiologist's impression: ITS Impressions Chest X-Ray 08/29/25 13:02 IMPRESSION: 1: NO ACUTE CARDIOPULMONARY DISEASE. Discharge Plan Discharge Clinical Impression: Breathlessness on mild exertion Patient Disposition: Home Condition: Stable Instructions: Dyspnea (ED) Additional Instructions: 1) Please follow-up with your primary care doctor in the next 1-2 days. 2) If you have any worsening of symptoms or any other urgent concerns please go to the ER. 3) Please take medications as prescribed and continue taking your home medications as usual. 4) Please read and follow information included in discharge instructions. Patient Language: Romanian Prescriptions: No Action No Home Medications Follow-up/Referrals: David Thomas MD [Physician, Family Practice] Stand Alone Forms: Work/School Release IP Time of Disposition: 13:17
[2025-08-29 12:48] VITALS: BP 136/78; PULSE 115; RESP 20; TEMP 36.8; O2SAT 99
--- OUTSIDE RECORDS SUMMARY | 2025-08-29 13:14 | XMS_ITS | Clinical Summary ---
Author Organization [facility] Address [address] [place] [address] Care Team Providers Care Recycling Crew Supervisor Name Role Phone No, Physician Primary Care Provider [phone] Allergies No known active allergies Medications No [...] age to complete this topic Care Teams Recycling Crew Supervisor Relationship Specialty Start Date End Date No, Physician PCP - General 01/17/25
== END 2025-08-29 13:18 | disposition home or self-care (01) ==
PROVIDERS: Emergency Provider Nurse Practitioner Family
DX: R06.09 Other forms of dyspnea (principal); F12.90 Cannabis use, unspecified, uncomplicated; F17.290 Nicotine dependence, other tobacco product, uncomplicated
CPT/HCPCS: 71046; 99213; G0463